=== PATIENT | male | born 1965 | race Caucasian/White ===

== ENCOUNTER → 2018-04-27 09:58 | Outpatient (CLI) | payer OTHER, MEDICAID, SELFPAY | PROVIDERS: PCP Family Medicine; Visit Provider Family Medicine | DX: Z53.9 Procedure and treatment not carried out, unspecified reason (principal) ==

== ENCOUNTER → 2018-04-29 12:43 | Outpatient (CLI) | payer OTHER, MEDICAID, SELFPAY ==
[2018-04-29 13:54] LABS: BUN Creatinine Ratio 18.8 (6-22); Blood Urea Nitrogen 15 mg/dL (9-20); Calcium 9.4 mg/dL (8.4-10.2); Carbon Dioxide 27 mmol/L (22-32); Chloride 103 mmol/L (98-107); Estimated Glomerular Filt Rate > 60.0 mL/min (>60); Glucose 114 mg/dL (70-100); HEMOLYSIS < 15 (0-50); Potassium 3.8 mmol/L (3.4-5.1); Sodium 143 mmol/L (137-145)
[2018-04-29 18:29] LABS: Creatinine Urine Random 106.8 mg/dL
[2018-04-29 18:32] LABS: Microalbumi Creatinin Ratio Ur 9.3 ug/mg CR (<30)
[2018-05-03 05:11] LABS: Aldosterone/Renin Activity Rat 21.2 Ratio (0.9-28.9); Plama Renin, LC/MS/MS 0.66 ng/mL/h (0.25-5.82)
[2018-05-08 09:34] LABS: Total Volume 3400 mL; Urine, Metanephrine 185 mcg/24 h (90-315); Urine, Normetanephrine 654 mcg/24 h (122-676)
[2018-05-08 16:31] LABS: Creatinine, 24 Urine 1.33 g/24 h (0.50-2.15); Total Catecholamines 51 mcg/24 h (26-121); Total Volume: 3400 mL
== END ==
PROVIDERS: Family Provider Family Medicine; PCP Family Medicine; Visit Provider Family Medicine
DX: I10 Essential (primary) hypertension (principal)
CPT/HCPCS: 36415; 80048; 82043; 82088; 82384; 82570; 83835; 84244

== ENCOUNTER → 2018-05-06 08:43 | Outpatient (CLI) | payer OTHER, MEDICAID, SELFPAY ==
--- NOTE | 2018-05-06 08:43 | DI.US.S_ITS ---
PROCEDURE: US RENAL COMPLETE INDICATIONS: REFRACTORY HYPERTENSION TECHNIQUE: Real-time scanning was performed of the kidneys and bladder, with image documentation. COMPARISON: None. FINDINGS: Kidneys: Kidneys are normal in size. Right kidney measures 11.9 cm long; left kidney measures 11.4 cm long. Right renal cortical thickness is 2.1 cm; left renal cortical thickness is 1.8 cm. Renal cortical echotexture is normal. No hydronephrosis or nephrolithiasis. No suspicious solid mass lesions. Bladder: Urinary bladder decompressed and suboptimally visualized. Miscellaneous: No free pelvic fluid. IMPRESSION: Normal kidneys. Dictated by: Azar Sharma [facility] Interpreted: Negro Peñaloza MD on 05/06/2018 at 9:21 Approved by: Negro Peñaloza M.D. on 05/06/2018 at 13:57
--- NOTE | 2018-05-06 08:43 | DI.ECHO.S_ITS ---
[facility] +---------+ : : [address] : : : : [id number] : : : : Phone: [phone]---------+ Echocardiogram Report + + :Name: BRANDON ELLISON Study Date: 05/06/2018 Height: 67 in : :[facility] Exam Location: IS Weight: 200 lb : : Gender: Male BSA: 2.0 m2 : :: 1965 Age: 52 yrs BP: 165/95 mmHg: :Ordering Physician: Piyush Casarez Performed By: Keya Page : :Referring: TRAVIS SHERMAN : + + Interpretation Summary There is mild-moderate concentric left ventricular hypertrophy. The ejection fraction is estimated to be 60-65%. Assessment of diastolic parameters indicates a relaxation abnormality of the left ventricle, consistent with normal filling pressures. The left atrium is mildly dilated. The right ventricular systolic pressure is estimated at 30 mmHg assuming a right atrial pressure of 3 mm Hg. The ascending aorta is mildly enlarged. Procedure: A two-dimensional transthoracic echocardiogram with color flow and Doppler was performed. The study quality was technically adequate. There is no prior echocardiogram noted for this patient. The patient was in normal sinus rhythm during the exam. Left Ventricle: There is mild-moderate concentric left ventricular hypertrophy. The left ventricle is normal in size. The ejection fraction is estimated to be 60-65%. Left ventricular wall motion is normal. Assessment of diastolic parameters indicates a relaxation abnormality of the left ventricle, consistent with normal filling pressures. Right Ventricle: The right ventricle is normal in size and function. Atria: The left atrium is mildly dilated. Right atrial size is normal. There is no Doppler evidence for an interatrial shunt. Mitral Valve: The mitral valve is normal in structure and function. There is mild mitral annular calcification. There is no mitral regurgitation noted. Aortic Valve: The aortic valve is trileaflet. The aortic valve opens well. No aortic regurgitation is present. Tricuspid Valve: The tricuspid valve is normal in structure and function. There is trace tricuspid regurgitation. The right ventricular systolic pressure is estimated at 30 mmHg assuming a right atrial pressure of 3 mm Hg. Pulmonic Valve: The pulmonic valve is not well visualized. There is trace pulmonic regurgitation. Great Vessels: The aortic root is normal size. The ascending aorta is mildly enlarged. The aortic arch is normal in size. The pulmonary artery is not well visualized, but is probably normal size. The IVC is of normal diameter and collapses greater than 50% with a sniff. This suggests a low right atrial pressure of 3 mm Hg. Pericardium/ Pleura There is no pericardial effusion. There is no pleural effusion. MMode/2D Measurements & Calculations LVIDd: 5.4 cm LVOT diam: 2.2 cm LVIDs: 3.1 cm Ao root diam: 3.8 cm FS: 42.9 % asc Aorta Diam: 3.9 cm EPSS: 0.57 cm Ao Arch Diam (Prox Trans): 2.6 cm IVSd: 1.5 cm LVPWd: 1.2 cm LV crespo. diameter/BSA (cm/m^2): 2.7 LV sys. diameter/BSA (cm/m^2): 1.5 LA A2 area: 26.6 cm2 RA long axis: 5.3 cm LA A4 area: 21.7 cm2 RA area: 19.9 cm2 LA length (vol): 5.9 cm RA vol: 63.5 ml LA vol: 83.0 ml RA : 31.4 ml/m2 LA vol index: 41.1 ml/m2 IVC diam: 1.7 cm Doppler Measurements & Calculations Ao V2 max: 156.9 cm/sec LVOT Max Adán: 114.2 cm/sec Ao V2 mean: 99.3 cm/sec LV V1 max P.2 mmHg Ao max P.8 mmHg LV V1 VTI: 28.4 cm Ao mean P.5 mmHg FRANCIE(I,D): 3.2 cm2 Ao V2 VTI: 33.6 cm FRANCIE(V,D): 2.8 cm2 sev ratio: 0.85 FRANCIE indexed to BSA (cm^2/m^2): 1.6 MV E max adán: 84.5 cm/sec TR max adán: 259.7 cm/sec MV A max adán: 91.9 cm/sec TR max P.0 mmHg MV E/A: 0.92 PA V2 max: 70.5 cm/sec Med Peak E' Adán: 5.2 cm/sec PA V2 mean: 48.8 cm/sec E/E' med: 16.4 PA mean P.1 mmHg Lat Peak E' Adán: 7.3 cm/sec PA Accel Time: 0.12 sec E/E' lat: 11.5 E/e' average: 14.0 MV dec time: 0.21 sec MV P1/2t: 61.5 msec MV P1/2t max adán: 84.7 cm/sec MVA(P1/2t): 3.6 cm2 Reading Physician:04:31 PM
== END ==
PROVIDERS: Family Provider Family Medicine; PCP Family Medicine; Visit Provider Family Medicine
DX: I10 Essential (primary) hypertension (principal); I77.89 Other specified disorders of arteries and arterioles
CPT/HCPCS: 76770; 93306

== ENCOUNTER → 2018-09-05 10:51 | Outpatient (CLI) | payer OTHER, MEDICAID, SELFPAY ==
--- NOTE | 2018-09-05 10:53 | DI.RAD.S_ITS ---
PROCEDURE: XR CHEST 2V INDICATIONS: SOB, crackles right lung on exam TECHNIQUE: 2 views of the chest were acquired. COMPARISON: Located Within [facility], , CHEST 2 VIEW, 09/04/2017, 15:55. Located Within [facility], , CHEST 1 VIEW, 08/27/2017, 16:07. FINDINGS: Surgical changes and devices: None. Lungs and pleura: No pleural effusions or pneumothorax. Lungs are clear. Mediastinum: Mediastinal contours are normal. Heart size is normal. Bones and chest wall: No suspicious bony abnormalities. Soft tissues appear unremarkable. IMPRESSION: Normal for age, source of current shortness of breath symptoms is not seen. Dictated by: Negro Peñaloza M.D. on 09/05/2018 at 12:36 Approved by: Negro Peñaloza M.D. on 09/05/2018 at 12:36
== END ==
PROVIDERS: Family Provider Family Medicine; PCP Family Medicine; Visit Provider Family Medicine
DX: R06.02 Shortness of breath (principal)
CPT/HCPCS: 71046

== ENCOUNTER → 2018-09-23 10:02 | Outpatient (CLI) | payer OTHER, MEDICAID, SELFPAY ==
--- NOTE | 2018-09-30 15:29 | PM.PFT.1 ---
Pulmonary Function Test Referral & Results Date Patient Seen: 09/23/18 Requesting provider: Lara Dickson Indication: Cough Results: The spirometry demonstrates an FVC of 3.95 L which is 89% of predicted. The FEV1 was measured at 3.0 L which is 80% of predicted. The FEV1/FVC ratio was 76 which is 90% of predicted. Following the administration of bronchodilator there was a 40% improvement in FEF 25-75%. Lung volumes show an SVC of 3.81 L which is 86% of predicted. The diffusing capacity was measured at 22.45 which is 79% of predicted. No hemoglobin value was provided, so no correction for potential anemia could be made, if appropriate. The maximum voluntary ventilation was normal Interpretation: This study demonstrates probably normal spirometry There is a mild reduction in diffusing capacity, unless patient is anemic, suggesting some minimal element of disease at the capillary alveolar level Clinical correlation suggested
== END ==
PROVIDERS: Family Provider Family Medicine; PCP Family Medicine; Visit Provider Family Medicine
DX: R05 Cough (principal)
CPT/HCPCS: 94060; 94726; 94729

== ENCOUNTER → 2018-10-18 09:38 | Outpatient (CLI) | payer OTHER, MEDICAID, SELFPAY ==
[2018-10-18 10:37] LABS: Add Manual Diff / Slide Review NO; Basophils Absolute Auto 100 /uL (0-100); Basophils Percent Auto 0.7 % (0-2); Eosinophils Absolute Auto 200 /uL (0-450); Eosinophils Percent Auto 2.5 % (2-4); Hemoglobin 15.8 g/dL (13.5-17.5); Lymphocytes Absolute Auto 2600 /uL (1100-4500); Lymphocytes Percent Auto 33.1 % (25-40); Mean Corpuscular Hemoglobin 31.3 PG (26-34); Mean Corpuscular Volume 89.4 fL (80-100); Monocytes Absolute Auto 700 /uL (0-900); Monocytes Percent Auto 8.9 % (3-14); Neutrophils Absolute Auto 4400 /uL (1500-7000); Neutrophils Percent Auto 54.8 % (50-75); Platelet Count 267 X10^3/uL (150-400); Red Blood Cell Count 5.03 X10^6/uL (4.5-5.9); Red Cell Distribution Width 14.4 % (11.6-14.8)
[2018-10-18 10:47] LABS: BUN Creatinine Ratio 23.3 (6-22); Blood Urea Nitrogen 21 mg/dL (9-20); Calcium 9.4 mg/dL (8.4-10.2); Carbon Dioxide 25 mmol/L (22-32); Chloride 104 mmol/L (98-107); Cholesterol 218 mg/dL (140-199); Estimated Glomerular Filt Rate > 60.0 mL/min (>60); Glucose 100 mg/dL (70-100); HDL Cholesterol 29 mg/dL (40-60); HEMOLYSIS < 15 (0-50); LDL Cholesterol Calculated 130 mg/dL (<100); Potassium 3.7 mmol/L (3.4-5.1); Sodium 140 mmol/L (137-145); Triglycerides 297 mg/dL (35-150)
== END ==
PROVIDERS: Family Provider Family Medicine; PCP Family Medicine; Visit Provider Internal Medicine Cardiovascular Disease
DX: I10 Essential (primary) hypertension (principal); E78.5 Hyperlipidemia, unspecified; I15.2 Hypertension secondary to endocrine disorders
CPT/HCPCS: 36415; 80048; 80061; 85025

== ENCOUNTER → 2019-02-28 13:50 | Outpatient (CLI) | payer OTHER, MEDICAID, SELFPAY ==
[2019-02-28 15:43] LABS: BUN Creatinine Ratio 21.1 (6-22); Blood Urea Nitrogen 19 mg/dL (9-20); Calcium 9.6 mg/dL (8.4-10.2); Carbon Dioxide 23 mmol/L (22-32); Chloride 105 mmol/L (98-107); Estimated Glomerular Filt Rate > 60.0 mL/min (>60); Glucose 94 mg/dL (70-100); HEMOLYSIS < 15 (0-50); Potassium 4.7 mmol/L (3.4-5.1); Sodium 138 mmol/L (137-145)
== END ==
PROVIDERS: Family Provider Family Medicine; PCP Family Medicine; Visit Provider Internal Medicine Cardiovascular Disease
DX: I10 Essential (primary) hypertension (principal)
CPT/HCPCS: 36415; 80048

== ENCOUNTER → 2019-04-07 10:49 | Outpatient (CLI) | payer OTHER, MEDICAID, SELFPAY ==
[2019-03-29 10:33] VITALS: PULSE 47
[2019-04-07 11:47] LABS: Collection Time Urine 24 Hours; Creatinine 24 Hour Urine 1384 mg/day (1000-2000); Creatinine Urine Random 79.1 mg/dL; Total Volume Urine 1750 mL
[2019-04-14 18:00] LABS: Total Volume 1750 mL; Urine, Metanephrine 173 mcg/24 h (90-315); Urine, Normetanephrine 544 mcg/24 h (122-676)
== END ==
PROVIDERS: Family Provider Family Medicine; PCP Family Medicine; Visit Provider Internal Medicine Endocrinology, Diabetes & Metabolism
DX: I15.9 Secondary hypertension, unspecified (principal)
CPT/HCPCS: 82570; 83835

== ENCOUNTER → 2019-04-13 12:14 | Outpatient (CLI) | payer OTHER, MEDICAID, SELFPAY ==
[2019-03-29 10:33] VITALS: PULSE 47
[2019-04-13 13:15] LABS: BUN Creatinine Ratio 17.8 (6-22); Blood Urea Nitrogen 16 mg/dL (9-20); Calcium 9.8 mg/dL (8.4-10.2); Carbon Dioxide 26 mmol/L (22-32); Chloride 103 mmol/L (98-107); Estimated Glomerular Filt Rate > 60.0 mL/min (>60); Glucose 93 mg/dL (70-100); HEMOLYSIS < 15 (0-50); Potassium 4.6 mmol/L (3.4-5.1); Sodium 139 mmol/L (137-145)
== END ==
PROVIDERS: PCP Family Medicine; Visit Provider Internal Medicine Cardiovascular Disease
DX: I10 Essential (primary) hypertension (principal)
CPT/HCPCS: 36415; 80048

== ENCOUNTER → 2019-06-02 09:35 | Outpatient (CLI) | payer OTHER, MEDICAID, SELFPAY ==
[2019-03-29 10:33] VITALS: PULSE 47
--- NOTE | 2019-06-02 15:09 | PM.TREADMILL ---
Cardiac Stress Test Report Referral & Results Date Patient Seen: 06/02/19 Requesting provider: Ravindra Barreto Indication: Hypertension Rest ECG: Unremarkable Procedure Note: After both written and verbal informed consent the patient had an IV started by the diagnostic imaging RN and then was hooked up to the treadmill monitoring system. The patient was placed on the treadmill at 1 mile an hour with no elevation and was then injected with the [place] scan material. The Cardiolite was then immediately administered. The patient spent an additional 2-3 minutes on the treadmill before being returned to the [facility] in the supine position. The patient had a normal response to all infused materials. Impression: Normal response as above. Please see perfusion imaging for results regarding possible ischemia Please note: Actual ECG tracings can be found in the PACS system.
--- NOTE | 2019-06-03 07:41 | DI.NM.S_ITS ---
DATE OF SERVICE: 06/02/2019 PROCEDURE PERFORMED: Pharmacologic vasodilator stress and rest myocardial perfusion imaging with gating to assess ejection fraction and regional wall motion, performed as a 1-day study. ORDERING PHYSICIAN: Ravindra Barreto MD INDICATIONS: The patient is a 53-year-old male with severe hypertension and tobacco addiction with exertional dyspnea. CARDIAC STRESS: Per protocol, 0.4 mg of regadenoson was infused, augmented by walking on a treadmill. With this, he had no symptoms and had a normal hemodynamic response. His resting ECG is normal and there are no ischemic changes with stress. There were no arrhythmias. Per protocol, 26.2 mCi of technetium 99 Myoview was injected and he was imaged 20 minutes later using a gated SPECT acquisition protocol. Earlier, he had been injected with 12.6 mCi of technetium 99 Myoview at rest and was imaged 30 minutes following that injection, again using a gated SPECT protocol. FINDINGS: 1. Raw data: There is fairly good myocardial tracer uptake. The lung/heart ratio is normal at 0.30 with a normal TID ratio of 0.94. 2. Quantitative gated SPECT: Post-stress ejection fraction is estimated at 76% without any focal wall motion abnormality. Resting ejection fraction is 74% with a resting end-diastolic volume of 143 mL. 3. Myocardial perfusion imaging: Post-stress supine images show a fairly normal perfusion pattern with a mild defect in the inferior wall that resolves on prone imaging, consistent with diaphragmatic attenuation. The resting images show an identical perfusion pattern to the post-stress supine images. CONCLUSION: 1. Normal myocardial perfusion study. 2. Mild fixed inferior wall defect that resolves on prone imaging, consistent with diaphragmatic attenuation. There is no compelling evidence for ischemia or previous myocardial infarction. 3. Normal left ventricular systolic function without any regional wall motion abnormality. 4. No angina or ECG evidence of ischemia with pharmacologic vasodilator stress. Vaughn Sánchez - RS/fn/ts doc#: [id number]/job#: [id number] dd: 06/02/2019 16:19:00 dt: 06/03/2019 07:24:00 DICTATING MD/COPIES TO: Margarito Odom MD; Ravindra Barreto MD; TRAVIS SHERMAN MD COPIES MNE: MIGUEL ÁNGEL MASTERS
== END ==
PROVIDERS: Family Provider Family Medicine; PCP Family Medicine; Visit Provider Internal Medicine Cardiovascular Disease
DX: R06.09 Other forms of dyspnea (principal); R07.9 Chest pain, unspecified; I15.2 Hypertension secondary to endocrine disorders; F17.200 Nicotine dependence, unspecified, uncomplicated
CPT/HCPCS: 78452; 93016; 93017; 93018; A9502; J2785

== ENCOUNTER 2019-06-27 10:30 | Outpatient (RCR) | payer OTHER, MEDICAID, SELFPAY ==
[2019-03-27 11:18] VITALS: BP 170/106; PULSE 51
--- NOTE | 2019-03-27 16:44 | PT.OIE ---
Current Diagnoses Bilateral primary osteoarthritis of knee (03/27/19) Pain in right knee (03/27/19) Pain in left knee (03/27/19) Other reduced mobility (03/27/19) Past Medical History (Last Updated 01/21/18 @ 11:53 by Naheed Ferris) Bilateral knee pain (Chronic 2002) COPD (chronic obstructive pulmonary disease) (Chronic 2014) Depression (Chronic) Hypertension (Chronic) Gastric ulcer (Resolved 2002) Rheumatic fever (Resolved 1983) Right eye injury (Resolved 1997) Past Surgical History (Last Updated 03/23/18 @ 10:50 by Naheed Ferris) Anesthesia (Resolved) Status post knee surgery (Resolved 2003) Provider Visit Care Team Role Provider Type Lara Dickson MD Primary Care Provider Physician Specialty: Family Practice Address: [address] [place] [address], [id number] Email: [email or web address] Jaylen Nunes PA-C Attending Provider Non-Staff Specialty: Medical Address: [address] [place] [address], [id number] Email: Physical Therapy Initial Evaluation PT-OP-A Visit Information Start: 03/24/19 18:29 Freq: Status: Active Protocol: Document 03/27/19 11:18 LRN (Rec: 03/27/19 12:43 LRN [id number]) Out-Patient Physical Therapy Visit Information Visit Information Visit Type Initial Evaluation Visit Start Time 11:18 Visit Stop Time 12:10 Total Visit Minutes 52 Visit Number 1 Number of [employer] Visits 0 Evaluation Information Evaluation Date 03/27/19 Precautions Precautions Dizziness Passing out feeling when coughing Uncontrolled HBP. PT-OP-B Current Condition Start: 03/24/19 18:29 Freq: Status: Active Protocol: Document 03/27/19 11:18 LRN (Rec: 03/27/19 12:43 LRN [id number]) Current Condition History of Current Condition Onset Date R knee 2003, L knee 2001 Current Complaints Bilateral sharp pains in the knee. L knee has given out going down stairs History of Current Condition Has always walked with a limp and it has been getting bad lately. 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 Must have PT before receiving an MRI. Last year was not able to receive PT because the blood pressure was too high. Blood pressure is now below 160/100, but the heart rate drops sometimes too low (35 bpm). Nest appt with roof technician is 04/14/19, and has an appt with a hormone/ gland specialist on 04/03/19. L knee is worse than the right . L knee pain can be sharp from the infrapatellar to the suprapatellar region. Feels the right side is bad because it compensates for the left. He has been off his feet so today his knees are not bad. Pain is with movement and with twisting. 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 Prior Treatments and Tests R knee arthroscopic surgery to clean it. Treatment Goals Patient/Caregiver Goals Pt goal is to not hurt anymore . His goal is to complete 4 weeks of therapy and get an MRI Prior Functional Status Baseline Function- ADL's Independent Baseline Function- Mobility Independent Baseline Function- Gait 2009 used cane because of L knee pain. Baseline Function- Work/School Worked 60-80 hours a week. Baseline Function- Other Limited with working tolerance . Currently not working. Walked up to 15-20 mile a day 4 yrs ago. Current Functional Impairments (Reported) Functional Limitations- Mobility/Gait Limited to 1-2 miles Functional Limitations- Work/School Currently limiting work 2 to 20 hrs/week due to knee pain. Functional Limitations- Other Stair ambulation sometimes one stepping going up, always one stepping descending (leading with left). Personal Factors Other Personal Factors That May Effect Dizziness Therapy/Recovery Feels like passing out when coughing Depression PT-OP-C Subjective Start: 03/24/19 18:29 Freq: Status: Active Protocol: Document 03/27/19 11:18 LRN (Rec: 03/27/19 12:43 LRN [id number]) Patient Questionnaires ABC- Activity Specific Balance Confidence Scale ABC Score 67 ABC Functional Impairment 20 to <40% Impaired (Score 61- 80) OP-PT Pain Assessment Location R knee Intensity 7 Scale Used Numeric (1 - 10) Description Aching Sharp Frequency Constant Pain Aggravating Factors Activity Exercise Standing Sitting Walking Stair Climbing Bending Lifting Pain Alleviating Factors Cold Medication Other Pain Alleviating Factors Tyleonol L knee Intensity 9 Scale Used Numeric (1 - 10) Description Aching Sharp Shooting Frequency Constant Pain Aggravating Factors Activity Exercise Standing Walking Stair Climbing Bending Lifting Pain Alleviating Factors Cold Medication Reduced Environmental Stimuli Other Pain Alleviating Factors Tylenol PT-OP-H Neuro Start: 03/24/19 18:29 Freq: Status: Active Protocol: Document 03/27/19 11:18 LRN (Rec: 03/28/19 16:23 LRN [id number]) Deep Tendon Reflex & Clonus Assessment Deep Tendon Reflex Right Achilles Deep Tendon Reflex 1+ Diminished Left Achilles Deep Tendon Reflex 0 Absent Right Patellar Deep Tendon Reflex 0 Absent Left Patellar Deep Tendon Reflex 2+ Normal Vital Signs Pulse R index finger Pulse at Rest (bpm) 51 Pulse Assessment Method Pulse Ox/Monitor Blood Pressure Sitting Blood Pressure (90/60-120/80 mmHg) 170/106 H Blood Pressure Source Manual Cuff Left Upper Extremity PT-OP-J Posture/Palpation/Skin Start: 03/24/19 18:29 Freq: Status: Active Protocol: Document 03/27/19 11:18 LRN (Rec: 03/28/19 16:23 LRN [id number]) Posture Evaluation Comments Posture Comments In standing: Pt stands more on his R LE ~60%. He has mild varus on the right, increased lumbar lordosis and a forward head. Palpation Assessment Location L & R knee Palpation Location Medial joint line Palpation Findings Tenderness L knee Palpation Location L patella superiorly, inferiorly and inferolateral Palpation Findings Tenderness PT-OP-K Range of Motion Start: 03/24/19 18:29 Freq: Status: Active Protocol: Document 03/27/19 11:18 LRN (Rec: 03/28/19 16:23 LRN [id number]) Hip Goniometric Range of Motion Hip Right Passive Straight Leg Raise 80 Left Passive Straight Leg Raise 70 Knee Goniometric Range of Motion Knee Right Patient Position Supine Flexion Active (degrees) 140 Extension Active (degrees) 5 Left Patient Position Supine Flexion Active (degrees) 140 Extension Active (degrees) 12 Knee ROM Limitations Knee ROM Limitations Pain Comments Extension Active measurement: is lacking extension in degrees PT-OP-L Special Tests Start: 03/24/19 18:29 Freq: Status: Active Protocol: Document 03/27/19 11:18 LRN (Rec: 03/28/19 16:23 LRN [id number]) Special Tests Knee Special Tests Valgus- 25 Degrees Test Results + left Comments Left: Medial knee Pain with testing. Right: Lateral knee Pain with testing. Anterior Draw Test Results Bilateral: Increased forward translation with end stop PT-OP-M Strength Start: 03/24/19 18:29 Freq: Status: Active Protocol: Document 03/27/19 11:18 LRN (Rec: 03/28/19 16:23 LRN [id number]) Knee Strength Knee Manual Muscle Testing Right Reason Not Measured WFL Left Reason Not Measured WFL PT-OP-Q Treatments Start: 03/24/19 18:29 Freq: Status: Active Protocol: Document 03/27/19 11:18 LRN (Rec: 03/28/19 16:23 LRN [id number]) Manual Therapy Treatment Taping Knees Body Location Medial Harmon Patella Treatment Focus Alignment correction Type of Tape Kinesio Tape Skin Inspection Pt agreeable to taping on legs without shaving. Comments Pt instructed to remove before next appointment and to remove with signs of allergic reaction, with discussion of possible symptoms. Self-Care/Home Management Treatment Education Other Education Safe and proper removal of K- tape. Discussed safe Blood pressures for exercise and physical therapy. Activities Self-Care/Home Management Activities Pt to remove K-tape before next appointment or within 5 days. PT-OP-T Assessment and Plan Start: 03/24/19 18:29 Freq: Status: Active Protocol: Document 03/27/19 11:18 LRN (Rec: 03/27/19 12:43 LRN [id number]) Physical Therapy Assessment Rehab Potential Rehabilitation Potential Fair Evaluation Complexity Number of Personal Factors/Comorbidities 3 or More Number of Body Systems Impaired 4 or More Impairments Impairments Activity Tolerance Gait Pain Posture ROM Strength Other Impairments Uncontrolled HBP Other Concerns Age Related Concerns Effect on work and social life Barriers to Rehabilitation Co-morbidities Goals Two Impairment Bilateral knee pain (L rated 9 /10, R rated 7/10) Mcfp Goal (LTG) Decrease knee pain with pt able to tolerate increased tolerance to walking (>1-2 miles) and improved tolerance to working. One Impairment Lacks appropriate HEP Electrician Telephone Goal (LTG) Pt will be independent with a self care HEP. LTG Duration 04/28/19 Assessment Summary Assessment Pt presents today with blood pressure in sittin/106, he is to keep his systolic blood pressure 140 or below. The pt will be seeing his primary care physician prior to continuation of his physical therapy rehabilitation. Today, the pt presents with L knee instability with possible ligamentous laxity of his MCL and ACL, and R knee laxity of the MCL. Of the L knee he is limited in weight bearing due to sharp knee pain and appears to get slight relief of pain with patella gliding medially with extension. His R knee appears to be increasing in pain due to excessive weight bearing from compensating for his L knee pain. The pt may benefit from use of a cane to protect his R knee and decrease weight bearing on the left until he is able to strengthen to improve L knee stability. The pt will benefit from skilled physical therapy for LE strengthening, gait training, modalities to decrease pain, ROM ex's and placement on a HEP. The patient might do better in an aquatic therapy program. This will be discussed with the patient at his next appointment. Physical Therapy Plan Frequency and Duration Frequency of Treatment 2x/Week Plan of Care Start Date 03/27/19 Plan of Care End Date 04/28/19 Therapeutic Interventions Therapeutic Interventions Aquatic Therapy Gait Training Home Exercise Program Manual Therapy Neuromuscular Re-education Patient/Caregiver Education Self-Care/Home Management Soft Tissue Mobilization Taping Therapeutic Exercises Modalities Cold Pack/Ice Massage Electric Stimulation Hot Packs Ultrasound Next Visit Focus/Plan Next Note Type Treatment Note Next Visit Plan ASSESS BP & HR prior to exercise. Discuss possible aquatic therapy for ROM and strengthening. Check pt's response to K-tape, gait training with use of cane, start strengthening ex's and ROM to improve L knee ext; end with modalities (US, ice/E- stim, laser).
--- NOTE | 2019-03-27 16:45 | PT.OPPOC ---
Current Diagnoses Bilateral primary osteoarthritis of knee (03/27/19) Pain in right knee (03/27/19) Pain in left knee (03/27/19) Other reduced mobility (03/27/19) Provider Visit Care Team Role Provider Type Lara Dickson MD Primary Care Provider Physician Specialty: Family Practice Address: [address] [place] [address], [id number] Email: [email or web address] Jaylen Nunes PA-C Attending Provider Non-Staff Specialty: Medical Address: [address] [place] [address], [id number] Email: Plan Of Care PT-OP-T Assessment and Plan Start: 03/24/19 18:29 Freq: Status: Active Protocol: Document 03/27/19 11:18 LRN (Rec: 03/27/19 12:43 LRN [id number]) Physical Therapy Assessment Rehab Potential Rehabilitation Potential Fair Evaluation Complexity Number of Personal Factors/Comorbidities 3 or More Number of Body Systems Impaired 4 or More Impairments Impairments Activity Tolerance Gait Pain Posture ROM Strength Other Impairments Uncontrolled HBP Other Concerns Age Related Concerns Effect on work and social life Barriers to Rehabilitation Co-morbidities Goals Two Impairment Bilateral knee pain (L rated 9 /10, R rated 7/10) Assignment Clerk Goal (LTG) Decrease knee pain with pt able to tolerate increased tolerance to walking (>1-2 miles) and improved tolerance to working. One Impairment Lacks appropriate HEP Assignment Clerk Goal (LTG) Pt will be independent with a self care HEP. LTG Duration 04/28/19 Assessment Summary Assessment Pt presents today with blood pressure in sittin/106, he is to keep his systolic blood pressure 140 or below. The pt will be seeing his primary care physician prior to continuation of his physical therapy rehabilitation. Today, the pt presents with L knee instability with possible ligamentous laxity of his MCL and ACL, and R knee laxity of the MCL. Of the L knee he is limited in weight bearing due to sharp knee pain and appears to get slight relief of pain with patella gliding medially with extension. His R knee appears to be increasing in pain due to excessive weight bearing from compensating for his L knee pain. The pt may benefit from use of a cane to protect his R knee and decrease weight bearing on the left until he is able to strengthen to improve L knee stability. The pt will benefit from skilled physical therapy for LE strengthening, gait training, modalities to decrease pain, ROM ex's and placement on a HEP. The patient might do better in an aquatic therapy program. This will be discussed with the patient at his next appointment. Physical Therapy Plan Frequency and Duration Frequency of Treatment 2x/Week Plan of Care Start Date 03/27/19 Plan of Care End Date 04/28/19 Therapeutic Interventions Therapeutic Interventions Aquatic Therapy Gait Training Home Exercise Program Manual Therapy Neuromuscular Re-education Patient/Caregiver Education Self-Care/Home Management Soft Tissue Mobilization Taping Therapeutic Exercises Modalities Cold Pack/Ice Massage Electric Stimulation Hot Packs Ultrasound Next Visit Focus/Plan Next Note Type Treatment Note Next Visit Plan ASSESS BP & HR prior to exercise. Discuss possible aquatic therapy for ROM and strengthening. Check pt's response to K-tape, gait training with use of cane, start strengthening ex's and ROM to improve L knee ext; end with modalities (US, ice/E- stim, laser). Plan of Care Dates Plan of Care Start Date 03/27/19 Plan of Care End Date 04/28/19 Please Sign and Return: I have reviewed this Plan of Care and certify that the skilled therapy services above are required to meet the patient?s needs. Physician Signature Date Printed Name and Credentials Clinical Instructor Signature Printed Name and Credentials
[2019-03-29 10:33] VITALS: BP 120/84; PULSE 47
--- NOTE | 2019-03-29 11:41 | PT.OTN ---
Current Diagnoses Bilateral primary osteoarthritis of knee (03/29/19) Pain in right knee (03/29/19) Pain in left knee (03/29/19) Other reduced mobility (03/29/19) Physical Therapy Treatment Note PT-OP-A Visit Information Start: 03/24/19 18:29 Freq: Status: Active Protocol: Document 03/29/19 10:33 LRN (Rec: 03/29/19 11:22 LRN [id number]) Out-Patient Physical Therapy Visit Information Visit Information Visit Type Treatment Note Visit Start Time 10:33 Visit Stop Time 11:21 Total Visit Minutes 48 Visit Number 2 Number of SPRING FITTER HELPER Visits 0 Evaluation Information Evaluation Date 03/27/19 Precautions Precautions Uncontrolled HBP Dizziness Passing out feeling when coughing PT-OP-B Current Condition Start: 03/24/19 18:29 Freq: Status: Active Protocol: Document 03/27/19 11:18 LRN (Rec: 03/27/19 12:43 LRN [id number]) Current Condition History of Current Condition Onset Date R knee 2003, L knee 2001 Current Complaints Bilateral sharp pains in the knee. L knee has given out going down stairs History of Current Condition Has always walked with a limp and it has been getting bad lately. 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 Must have PT before receiving an MRI. Last year was not able to receive PT because the blood pressure was too high. Blood pressure is now below 160/100, but the heart rate drops sometimes too low (35 bpm). Nest appt with colon therapist is 04/14/19, and has an appt with a hormone/ gland specialist on 04/03/19. L knee is worse than the right . L knee pain can be sharp from the infrapatellar to the suprapatellar region. Feels the right side is bad because it compensates for the left. He has been off his feet so today his knees are not bad. Pain is with movement and with twisting. 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 Prior Treatments and Tests R knee arthroscopic surgery to clean it. Treatment Goals Patient/Caregiver Goals Pt goal is to not hurt anymore . His goal is to complete 4 weeks of therapy and get an MRI Prior Functional Status Baseline Function- ADL's Independent Baseline Function- Mobility Independent Baseline Function- Gait 2009 used cane because of L knee pain. Baseline Function- Work/School Worked 60-80 hours a week. Baseline Function- Other Limited with working tolerance . Currently not working. Walked up to 15-20 mile a day 4 yrs ago. Current Functional Impairments (Reported) Functional Limitations- Mobility/Gait Limited to 1-2 miles Functional Limitations- Work/School Currently limiting work 2 to 20 hrs/week due to knee pain. Functional Limitations- Other Stair ambulation sometimes one stepping going up, always one stepping descending (leading with left). Personal Factors Other Personal Factors That May Effect Dizziness Therapy/Recovery Feels like passing out when coughing Depression PT-OP-C Subjective Start: 03/24/19 18:29 Freq: Status: Active Protocol: Document 03/29/19 10:33 LRN (Rec: 03/29/19 11:22 LRN [id number]) OP-PT Subjective Patient Comments Patient Comments Went to see his general practitioner after last appt and is waiting to set up an appt, blood pressure was found to be high. States he is to work within blood pressure limit of 160/100. No change in knee pain with K-tape. Pt to see thyroid specialist ~ 12th of this month. PT-OP-H Neuro Start: 03/24/19 18:29 Freq: Status: Active Protocol: Document 03/29/19 10:33 LRN (Rec: 03/29/19 11:22 LRN [id number]) Vital Signs Pulse R index finger Pulse at Rest (bpm) 47 Pulse Assessment Method Pulse Ox/Monitor Blood Pressure Sitting Blood Pressure (90/60-120/80 mmHg) 120/84 H Blood Pressure Source Manual Cuff Comments Vital Signs Comments S/P therapy, Supine: HR 45, BP 140/82 PT-OP-J Posture/Palpation/Skin Start: 03/24/19 18:29 Freq: Status: Active Protocol: Document 03/27/19 11:18 LRN (Rec: 03/28/19 16:23 LRN [id number]) Posture Evaluation Comments Posture Comments In standing: Pt stands more on his R LE ~60%. He has mild varus on the right, increased lumbar lordosis and a forward head. Palpation Assessment Location L & R knee Palpation Location Medial joint line Palpation Findings Tenderness L knee Palpation Location L patella superiorly, inferiorly and inferolateral Palpation Findings Tenderness PT-OP-K Range of Motion Start: 03/24/19 18:29 Freq: Status: Active Protocol: Document 03/27/19 11:18 LRN (Rec: 03/28/19 16:23 LRN [id number]) Hip Goniometric Range of Motion Hip Right Passive Straight Leg Raise 80 Left Passive Straight Leg Raise 70 Knee Goniometric Range of Motion Knee Right Patient Position Supine Flexion Active (degrees) 140 Extension Active (degrees) 5 Left Patient Position Supine Flexion Active (degrees) 140 Extension Active (degrees) 12 Knee ROM Limitations Knee ROM Limitations Pain Comments Extension Active measurement: is lacking extension in degrees PT-OP-L Special Tests Start: 03/24/19 18:29 Freq: Status: Active Protocol: Document 03/27/19 11:18 LRN (Rec: 03/28/19 16:23 LRN [id number]) Special Tests Knee Special Tests Valgus- 25 Degrees Test Results + left Comments Left: Medial knee Pain with testing. Right: Lateral knee Pain with testing. Anterior Draw Test Results Bilateral: Increased forward translation with end stop PT-OP-M Strength Start: 03/24/19 18:29 Freq: Status: Active Protocol: Document 03/27/19 11:18 LRN (Rec: 03/28/19 16:23 LRN [id number]) Knee Strength Knee Manual Muscle Testing Right Reason Not Measured WFL Left Reason Not Measured WFL PT-OP-Q Treatments Start: 03/24/19 18:29 Freq: Status: Active Protocol: Document 03/29/19 10:33 LRN (Rec: 03/29/19 11:22 LRN [id number]) Therapeutic Exercises Supine Exercises TA Supine Exercise Name TA Reps/Minutes 5' Comments Training needed, pt not yet able to perform correctly SLR 1 O'Clock Supine Exercise Name SLR 1 O'Clock Side left Resistance 1# Reps/Minutes 10 x 3 SLR Supine Exercise Name Foot @ 11 Resistance 0, 1#, 2# Reps/Minutes 10 x each slowly SLR 12 O'clock Supine Exercise Name SLR foot 12 O'Clock Side left Resistance 9# Reps/Minutes 10x slowly Chest breathing w/TA tightening Supine Exercise Name Chest breathing w/TA tightening Reps/Minutes 10' Comments Manual cuing needed PT-OP-R Modalities Start: 03/24/19 18:29 Freq: Status: Active Protocol: Document 03/29/19 10:33 LRN (Rec: 03/29/19 11:22 LRN [id number]) Ultrasound Therapy Treatment L knee Treatment Duration (minutes) 8 Patient Position Supine Coupling Medium Ultrasound Gel Mode Setting Pulsed Duty Cycle 50% Intensity Setting (w/cm2) 1.0 Comments Infrapatellar medially & laterally PT-OP-T Assessment and Plan Start: 03/24/19 18:29 Freq: Status: Active Protocol: Document 03/29/19 10:33 LRN (Rec: 03/29/19 11:22 LRN [id number]) Physical Therapy Assessment Assessment Summary Assessment Pt blood pressure within acceptable range for therapy of high limit: 160/100. BP @ start in sitting 120/84, after therapy in supine BP 140/82. No improvement with use of K -tape. Pt is not able to properly tighten his TA and it does not properly tighten reflexively with coughing. He has no upper chest excursion with breathing. Pt agreeable to trying aquatic therapy for ROM and strengthening. Physical Therapy Plan Frequency and Duration Frequency of Treatment 2x/Week Plan of Care Start Date 03/27/19 Plan of Care End Date 04/28/19 Next Visit Focus/Plan Next Note Type Treatment Note Next Visit Plan ASSESS BP & HR prior to exercise. Check response to US and check breathing and ability to stabilize the core with TA contraction. Try getting pt in to aquatic therapy (place on wait list). Start Gait training with use of cane, progress strengthening ex's, and ROM to improve L knee ext; on land end with modalities (US, ice/E -stim, laser).
--- NOTE | 2019-04-04 11:07 | PT.OTN ---
Current Diagnoses Bilateral primary osteoarthritis of knee (04/04/19) Pain in right knee (04/04/19) Pain in left knee (04/04/19) Other reduced mobility (04/04/19) Physical Therapy Treatment Note PT-OP-A Visit Information Start: 03/24/19 18:29 Freq: Status: Active Protocol: Document 04/04/19 10:00 GGD (Rec: 04/04/19 11:07 GGD [id number]) Out-Patient Physical Therapy Visit Information Visit Information Visit Type Treatment Note Visit Start Time 09:45 Visit Stop Time 10:23 Total Visit Minutes 38 Visit Number 3 Number of PRODUCTION ENGINE REPAIRER Visits 1 Evaluation Information Evaluation Date 03/27/19 PT-OP-B Current Condition Start: 03/24/19 18:29 Freq: Status: Active Protocol: Document 03/27/19 11:18 LRN (Rec: 03/27/19 12:43 LRN [id number]) Current Condition History of Current Condition Onset Date R knee 2003, L knee 2001 Current Complaints Bilateral sharp pains in the knee. L knee has given out going down stairs History of Current Condition Has always walked with a limp and it has been getting bad lately. 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 Must have PT before receiving an MRI. Last year was not able to receive PT because the blood pressure was too high. Blood pressure is now below 160/100, but the heart rate drops sometimes too low (35 bpm). Nest appt with grain elevator operator is 04/14/19, and has an appt with a hormone/ gland specialist on 04/03/19. L knee is worse than the right . L knee pain can be sharp from the infrapatellar to the suprapatellar region. Feels the right side is bad because it compensates for the left. He has been off his feet so today his knees are not bad. Pain is with movement and with twisting. 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 Prior Treatments and Tests R knee arthroscopic surgery to clean it. Treatment Goals Patient/Caregiver Goals Pt goal is to not hurt anymore . His goal is to complete 4 weeks of therapy and get an MRI Prior Functional Status Baseline Function- ADL's Independent Baseline Function- Mobility Independent Baseline Function- Gait 2009 used cane because of L knee pain. Baseline Function- Work/School Worked 60-80 hours a week. Baseline Function- Other Limited with working tolerance . Currently not working. Walked up to 15-20 mile a day 4 yrs ago. Current Functional Impairments (Reported) Functional Limitations- Mobility/Gait Limited to 1-2 miles Functional Limitations- Work/School Currently limiting work 2 to 20 hrs/week due to knee pain. Functional Limitations- Other Stair ambulation sometimes one stepping going up, always one stepping descending (leading with left). Personal Factors Other Personal Factors That May Effect Dizziness Therapy/Recovery Feels like passing out when coughing Depression PT-OP-C Subjective Start: 03/24/19 18:29 Freq: Status: Active Protocol: Document 04/04/19 10:00 GGD (Rec: 04/04/19 11:07 GGD [id number]) OP-PT Subjective Patient Comments Patient Comments Pt states that he had some muscle soreness after doing exerices. PT-OP-H Neuro Start: 03/24/19 18:29 Freq: Status: Active Protocol: Document 03/29/19 10:33 LRN (Rec: 03/29/19 11:22 LRN [id number]) Vital Signs Pulse R index finger Pulse at Rest (bpm) 47 Pulse Assessment Method Pulse Ox/Monitor Blood Pressure Sitting Blood Pressure (90/60-120/80 mmHg) 120/84 H Blood Pressure Source Manual Cuff Comments Vital Signs Comments S/P therapy, Supine: HR 45, BP 140/82 PT-OP-J Posture/Palpation/Skin Start: 03/24/19 18:29 Freq: Status: Active Protocol: Document 03/27/19 11:18 LRN (Rec: 03/28/19 16:23 LRN [id number]) Posture Evaluation Comments Posture Comments In standing: Pt stands more on his R LE ~60%. He has mild varus on the right, increased lumbar lordosis and a forward head. Palpation Assessment Location L & R knee Palpation Location Medial joint line Palpation Findings Tenderness L knee Palpation Location L patella superiorly, inferiorly and inferolateral Palpation Findings Tenderness PT-OP-K Range of Motion Start: 03/24/19 18:29 Freq: Status: Active Protocol: Document 03/27/19 11:18 LRN (Rec: 03/28/19 16:23 LRN [id number]) Hip Goniometric Range of Motion Hip Right Passive Straight Leg Raise 80 Left Passive Straight Leg Raise 70 Knee Goniometric Range of Motion Knee Right Patient Position Supine Flexion Active (degrees) 140 Extension Active (degrees) 5 Left Patient Position Supine Flexion Active (degrees) 140 Extension Active (degrees) 12 Knee ROM Limitations Knee ROM Limitations Pain Comments Extension Active measurement: is lacking extension in degrees PT-OP-L Special Tests Start: 03/24/19 18:29 Freq: Status: Active Protocol: Document 03/27/19 11:18 LRN (Rec: 03/28/19 16:23 LRN [id number]) Special Tests Knee Special Tests Valgus- 25 Degrees Test Results + left Comments Left: Medial knee Pain with testing. Right: Lateral knee Pain with testing. Anterior Draw Test Results Bilateral: Increased forward translation with end stop PT-OP-M Strength Start: 03/24/19 18:29 Freq: Status: Active Protocol: Document 03/27/19 11:18 LRN (Rec: 03/28/19 16:23 LRN [id number]) Knee Strength Knee Manual Muscle Testing Right Reason Not Measured WFL Left Reason Not Measured WFL PT-OP-Q Treatments Start: 03/24/19 18:29 Freq: Status: Active Protocol: Document 04/04/19 10:00 GGD (Rec: 04/04/19 11:07 GGD [email or web address]) Therapeutic Exercises Supine Exercises 1 Supine Exercise Name qaud set with progressing knee extension Reps/Minutes 3' TA Supine Exercise Name TA Reps/Minutes 3' Comments cueing needed, pt not yet able to perform correctly SLR 1 O'Clock Supine Exercise Name SLR 1 O'Clock Side left Resistance 1# Reps/Minutes 10 x 3 SLR Supine Exercise Name Foot @ 11 Resistance 0, 1#, 2# Reps/Minutes 10 x each slowly SLR 12 O'clock Supine Exercise Name SLR foot 12 O'Clock Side left Resistance 9# Reps/Minutes 10x slowly Chest breathing w/TA tightening Supine Exercise Name Chest breathing w/TA tightening Reps/Minutes 5' Comments cuing needed Standing Exercises 2 Standing Exercise Name TKE Side bilateral Resistance Level 1 band Reps/Minutes 10x each 1 Standing Exercise Name hamstring stretch Reps/Minutes 2' Gait Training Gait Activity 1 Description gait training with and without SPC Device Used SPC Level of Assistance cueing Surface level Distance/Duration 200 PT-OP-R Modalities Start: 03/24/19 18:29 Freq: Status: Active Protocol: Document 04/04/19 10:00 GGD (Rec: 04/04/19 11:07 GGD [id number]) Ultrasound Therapy Treatment L knee Treatment Duration (minutes) 8 Patient Position Supine Coupling Medium Ultrasound Gel Mode Setting Pulsed Duty Cycle 50% Intensity Setting (w/cm2) 1.0 Comments Infrapatellar medially & laterally PT-OP-T Assessment and Plan Start: 03/24/19 18:29 Freq: Status: Active Protocol: Document 04/04/19 10:00 GGD (Rec: 04/04/19 11:07 GGD [id number]) Physical Therapy Assessment Assessment Summary Assessment Pt improved knee extension with decrease in pain with treatment. He had improved gait and decrease in limp and pain with gait with SPC. Physical Therapy Plan Frequency and Duration Frequency of Treatment 2x/Week Plan of Care Start Date 03/27/19 Plan of Care End Date 04/28/19 Next Visit Focus/Plan Next Note Type Treatment Note Next Visit Plan ASSESS BP & HR prior to exercise. Check response to US and check breathing and ability to stabilize the core with TA contraction. Try getting pt in to aquatic therapy (place on wait list). Start Gait training with use of cane, progress strengthening ex's, and ROM to improve L knee ext; on land end with modalities (US, ice/E -stim, laser).
--- NOTE | 2019-04-07 13:35 | PT.OTN ---
Current Diagnoses Bilateral primary osteoarthritis of knee (04/07/19) Pain in right knee (04/07/19) Pain in left knee (04/07/19) Other reduced mobility (04/07/19) Physical Therapy Treatment Note PT-OP-A Visit Information Start: 03/24/19 18:29 Freq: Status: Active Protocol: Document 04/07/19 09:47 SAK (Rec: 04/07/19 10:30 SAK [id number]) Out-Patient Physical Therapy Visit Information Visit Information Visit Type Treatment Note Visit Start Time 09:45 Visit Stop Time 10:23 Total Visit Minutes 54 Visit Number 4 Number of TOMOGRAPHIC TECH Visits 1 Evaluation Information Evaluation Date 03/27/19 PT-OP-B Current Condition Start: 03/24/19 18:29 Freq: Status: Active Protocol: Document 03/27/19 11:18 LRN (Rec: 03/27/19 12:43 LRN [id number]) Current Condition History of Current Condition Onset Date R knee 2003, L knee 2001 Current Complaints Bilateral sharp pains in the knee. L knee has given out going down stairs History of Current Condition Has always walked with a limp and it has been getting bad lately. 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 Must have PT before receiving an MRI. Last year was not able to receive PT because the blood pressure was too high. Blood pressure is now below 160/100, but the heart rate drops sometimes too low (35 bpm). Nest appt with paper machine backtender is 04/14/19, and has an appt with a hormone/ gland specialist on 04/03/19. L knee is worse than the right . L knee pain can be sharp from the infrapatellar to the suprapatellar region. Feels the right side is bad because it compensates for the left. He has been off his feet so today his knees are not bad. Pain is with movement and with twisting. 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 Prior Treatments and Tests R knee arthroscopic surgery to clean it. Treatment Goals Patient/Caregiver Goals Pt goal is to not hurt anymore . His goal is to complete 4 weeks of therapy and get an MRI Prior Functional Status Baseline Function- ADL's Independent Baseline Function- Mobility Independent Baseline Function- Gait 2009 used cane because of L knee pain. Baseline Function- Work/School Worked 60-80 hours a week. Baseline Function- Other Limited with working tolerance . Currently not working. Walked up to 15-20 mile a day 4 yrs ago. Current Functional Impairments (Reported) Functional Limitations- Mobility/Gait Limited to 1-2 miles Functional Limitations- Work/School Currently limiting work 2 to 20 hrs/week due to knee pain. Functional Limitations- Other Stair ambulation sometimes one stepping going up, always one stepping descending (leading with left). Personal Factors Other Personal Factors That May Effect Dizziness Therapy/Recovery Feels like passing out when coughing Depression PT-OP-C Subjective Start: 03/24/19 18:29 Freq: Status: Active Protocol: Document 04/07/19 09:47 SAK (Rec: 04/07/19 10:30 SAK [id number]) OP-PT Subjective Patient Comments Patient Comments No new c/o. Compliant to HEP, continues to have knee pain PT-OP-H Neuro Start: 03/24/19 18:29 Freq: Status: Active Protocol: Document 03/29/19 10:33 LRN (Rec: 03/29/19 11:22 LRN [id number]) Vital Signs Pulse R index finger Pulse at Rest (bpm) 47 Pulse Assessment Method Pulse Ox/Monitor Blood Pressure Sitting Blood Pressure (90/60-120/80 mmHg) 120/84 H Blood Pressure Source Manual Cuff Comments Vital Signs Comments S/P therapy, Supine: HR 45, BP 140/82 PT-OP-J Posture/Palpation/Skin Start: 03/24/19 18:29 Freq: Status: Active Protocol: Document 03/27/19 11:18 LRN (Rec: 03/28/19 16:23 LRN [id number]) Posture Evaluation Comments Posture Comments In standing: Pt stands more on his R LE ~60%. He has mild varus on the right, increased lumbar lordosis and a forward head. Palpation Assessment Location L & R knee Palpation Location Medial joint line Palpation Findings Tenderness L knee Palpation Location L patella superiorly, inferiorly and inferolateral Palpation Findings Tenderness PT-OP-K Range of Motion Start: 03/24/19 18:29 Freq: Status: Active Protocol: Document 03/27/19 11:18 LRN (Rec: 03/28/19 16:23 LRN [id number]) Hip Goniometric Range of Motion Hip Right Passive Straight Leg Raise 80 Left Passive Straight Leg Raise 70 Knee Goniometric Range of Motion Knee Right Patient Position Supine Flexion Active (degrees) 140 Extension Active (degrees) 5 Left Patient Position Supine Flexion Active (degrees) 140 Extension Active (degrees) 12 Knee ROM Limitations Knee ROM Limitations Pain Comments Extension Active measurement: is lacking extension in degrees PT-OP-L Special Tests Start: 03/24/19 18:29 Freq: Status: Active Protocol: Document 03/27/19 11:18 LRN (Rec: 03/28/19 16:23 LRN [id number]) Special Tests Knee Special Tests Valgus- 25 Degrees Test Results + left Comments Left: Medial knee Pain with testing. Right: Lateral knee Pain with testing. Anterior Draw Test Results Bilateral: Increased forward translation with end stop PT-OP-M Strength Start: 03/24/19 18:29 Freq: Status: Active Protocol: Document 03/27/19 11:18 LRN (Rec: 03/28/19 16:23 LRN [id number]) Knee Strength Knee Manual Muscle Testing Right Reason Not Measured WFL Left Reason Not Measured WFL PT-OP-Q Treatments Start: 03/24/19 18:29 Freq: Status: Active Protocol: Document 04/07/19 09:47 SAK (Rec: 04/07/19 10:30 SAK [id number]) Cardio Equipment Recumbent Bicycle Duration (Minutes) 5 Resistance 3 Seat Position 4 Therapeutic Exercises Supine Exercises 1 Supine Exercise Name qaud set with progressing knee extension Reps/Minutes 3' TA Supine Exercise Name TA Reps/Minutes 3' Comments cueing needed, pt not yet able to perform correctly SLR 1 O'Clock Supine Exercise Name SLR 1 O'Clock Side left Resistance 1# Reps/Minutes 10 x 3 SLR Supine Exercise Name Foot @ 11 Resistance 0, 1#, 2# Reps/Minutes 10 x each slowly SLR 12 O'clock Supine Exercise Name SLR foot 12 O'Clock Side left Resistance 9# Reps/Minutes 10x slowly Sidelying Exercises quad stretch Reps/Minutes 2x30 Sitting Exercises hamstring Reps/Minutes 2x30 Standing Exercises HC stretch Reps/Minutes 2x30 2 Standing Exercise Name TKE Side bilateral Resistance Level 1 band Reps/Minutes 10x each 1 Standing Exercise Name hamstring stretch Reps/Minutes 2' Gait Training Gait Activity 1 Description gait training with SPC Device Used SPC Level of Assistance cueing Surface level Distance/Duration 200 Comments cues for symmetry, decreased limp, correct sequencing with cane Manual Therapy Treatment Taping Knees Body Location Medial [place] left Patella Treatment Focus Alignment correction Type of Tape Kinesio Tape Skin Inspection Pt agreeable to taping on legs without shaving. Comments Pt instructed to remove before next appointment and to remove with signs of allergic reaction, with discussion of possible symptoms. Self-Care/Home Management Treatment Activities Self-Care/Home Management Activities Pt to remove K-tape before next appointment or within 5 days. PT-OP-R Modalities Start: 03/24/19 18:29 Freq: Status: Active Protocol: Document 04/07/19 09:47 [facility] (Rec: 04/07/19 10:30 [facility] [id number]) Hot Pack/Cold Pack Treatment Cold Pack Location bilateral knees Patient Position Supine Treatment Duration (minutes) 10 Patient Tolerance Good Comments small towel roll under left knee, right LE elevated on bolster Ultrasound Therapy Treatment L knee Treatment Duration (minutes) 8 Patient Position Supine Coupling Medium Ultrasound Gel Mode Setting Pulsed Duty Cycle 50% Intensity Setting (w/cm2) 1.0 Comments Infrapatellar medially & laterally PT-OP-T Assessment and Plan Start: 03/24/19 18:29 Freq: Status: Active Protocol: Document 04/07/19 09:47 [facility] (Rec: 04/07/19 10:30 [facility] [id number]) Physical Therapy Assessment Goals Two Impairment Bilateral knee pain (L rated 9 /10, R rated 7/10) Senior Living Goal (LTG) Decrease knee pain with pt able to tolerate increased tolerance to walking (>1-2 miles) and improved tolerance to working. One Impairment Lacks appropriate HEP Designated Broker Goal (LTG) Pt will be independent with a self care HEP. LTG Duration 04/28/19 Assessment Summary Assessment BP 160/94 sitting after warm- up on ex bike. Fair tolerance for ther ex, improvement in left knee extension with ther ex though still lacking full extension. Trial ice to knees after ther ex, left knee in extension with small towel roll under due to intolerance for full extension Physical Therapy Plan Frequency and Duration Frequency of Treatment 2x/Week Plan of Care Start Date 03/27/19 Plan of Care End Date 04/28/19 Therapeutic Interventions Therapeutic Interventions Aquatic Therapy Gait Training Home Exercise Program Manual Therapy Neuromuscular Re-education Patient/Caregiver Education Self-Care/Home Management Soft Tissue Mobilization Taping Therapeutic Exercises Modalities Cold Pack/Ice Massage Electric Stimulation Hot Packs Ultrasound Next Visit Focus/Plan Next Note Type Treatment Note Next Visit Plan Continue PT per POC, monitor BP and HR, trial aquatic PT when able to be scheduled.
--- NOTE | 2019-04-11 10:40 | PT-OP ANOTE ---
Pt cancelled due to sickess.
--- NOTE | 2019-04-13 12:52 | PT.OTN ---
Current Diagnoses Bilateral primary osteoarthritis of knee (04/13/19) Pain in right knee (04/13/19) Pain in left knee (04/13/19) Other reduced mobility (04/13/19) Physical Therapy Treatment Note PT-OP-A Visit Information Start: 03/24/19 18:29 Freq: Status: Active Protocol: Document 04/13/19 11:20 LRN (Rec: 04/13/19 12:08 LRN [id number]) Out-Patient Physical Therapy Visit Information Visit Information Visit Type Treatment Note Visit Start Time 11:20 Visit Stop Time 12:08 Total Visit Minutes 48 Visit Number 5 Number of STAFF DEVELOPMENT MANAGER Visits 1 Evaluation Information Evaluation Date 03/27/19 Precautions Precautions Uncontrolled HBP Dizziness Passing out feeling when coughing PT-OP-B Current Condition Start: 03/24/19 18:29 Freq: Status: Active Protocol: Document 03/27/19 11:18 LRN (Rec: 03/27/19 12:43 LRN [id number]) Current Condition History of Current Condition Onset Date R knee 2003, L knee 2001 Current Complaints Bilateral sharp pains in the knee. L knee has given out going down stairs History of Current Condition Has always walked with a limp and it has been getting bad lately. 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 Must have PT before receiving an MRI. Last year was not able to receive PT because the blood pressure was too high. Blood pressure is now below 160/100, but the heart rate drops sometimes too low (35 bpm). Nest appt with hospitality recruiter is 04/14/19, and has an appt with a hormone/ gland specialist on 04/03/19. L knee is worse than the right . L knee pain can be sharp from the infrapatellar to the suprapatellar region. Feels the right side is bad because it compensates for the left. He has been off his feet so today his knees are not bad. Pain is with movement and with twisting. 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 Prior Treatments and Tests R knee arthroscopic surgery to clean it. Treatment Goals Patient/Caregiver Goals Pt goal is to not hurt anymore . His goal is to complete 4 weeks of therapy and get an MRI Prior Functional Status Baseline Function- ADL's Independent Baseline Function- Mobility Independent Baseline Function- Gait 2009 used cane because of L knee pain. Baseline Function- Work/School Worked 60-80 hours a week. Baseline Function- Other Limited with working tolerance . Currently not working. Walked up to 15-20 mile a day 4 yrs ago. Current Functional Impairments (Reported) Functional Limitations- Mobility/Gait Limited to 1-2 miles Functional Limitations- Work/School Currently limiting work 2 to 20 hrs/week due to knee pain. Functional Limitations- Other Stair ambulation sometimes one stepping going up, always one stepping descending (leading with left). Personal Factors Other Personal Factors That May Effect Dizziness Therapy/Recovery Feels like passing out when coughing Depression PT-OP-C Subjective Start: 03/24/19 18:29 Freq: Status: Active Protocol: Document 04/13/19 11:20 LRN (Rec: 04/13/19 12:08 LRN [id number]) OP-PT Subjective Patient Comments Patient Comments No new c/o. Seeing Dr. Daigle, hospitality recruiter tomorrow. PT-OP-H Neuro Start: 03/24/19 18:29 Freq: Status: Active Protocol: Document 03/29/19 10:33 LRN (Rec: 03/29/19 11:22 LRN [id number]) Vital Signs Pulse R index finger Pulse at Rest (bpm) 47 Pulse Assessment Method Pulse Ox/Monitor Blood Pressure Sitting Blood Pressure (90/60-120/80 mmHg) 120/84 H Blood Pressure Source Manual Cuff Comments Vital Signs Comments S/P therapy, Supine: HR 45, BP 140/82 PT-OP-J Posture/Palpation/Skin Start: 03/24/19 18:29 Freq: Status: Active Protocol: Document 03/27/19 11:18 LRN (Rec: 03/28/19 16:23 LRN [id number]) Posture Evaluation Comments Posture Comments In standing: Pt stands more on his R LE ~60%. He has mild varus on the right, increased lumbar lordosis and a forward head. Palpation Assessment Location L & R knee Palpation Location Medial joint line Palpation Findings Tenderness L knee Palpation Location L patella superiorly, inferiorly and inferolateral Palpation Findings Tenderness PT-OP-K Range of Motion Start: 03/24/19 18:29 Freq: Status: Active Protocol: Document 03/27/19 11:18 LRN (Rec: 03/28/19 16:23 LRN [id number]) Hip Goniometric Range of Motion Hip Right Passive Straight Leg Raise 80 Left Passive Straight Leg Raise 70 Knee Goniometric Range of Motion Knee Right Patient Position Supine Flexion Active (degrees) 140 Extension Active (degrees) 5 Left Patient Position Supine Flexion Active (degrees) 140 Extension Active (degrees) 12 Knee ROM Limitations Knee ROM Limitations Pain Comments Extension Active measurement: is lacking extension in degrees PT-OP-L Special Tests Start: 03/24/19 18:29 Freq: Status: Active Protocol: Document 03/27/19 11:18 LRN (Rec: 03/28/19 16:23 LRN [id number]) Special Tests Knee Special Tests Valgus- 25 Degrees Test Results + left Comments Left: Medial knee Pain with testing. Right: Lateral knee Pain with testing. Anterior Draw Test Results Bilateral: Increased forward translation with end stop PT-OP-M Strength Start: 03/24/19 18:29 Freq: Status: Active Protocol: Document 03/27/19 11:18 LRN (Rec: 03/28/19 16:23 LRN [id number]) Knee Strength Knee Manual Muscle Testing Right Reason Not Measured WFL Left Reason Not Measured WFL PT-OP-Q Treatments Start: 03/24/19 18:29 Freq: Status: Active Protocol: Document 04/13/19 11:20 LRN (Rec: 04/13/19 12:08 LRN [id number]) Cardio Equipment Recumbent Bicycle Duration (Minutes) 6 Resistance 3 Seat Position 4 Other Working NUHA perceived exertion scale 11 fairly light -13 somewhat hard Therapeutic Exercises Supine Exercises 1 Supine Exercise Name qaud set with progressing knee extension Reps/Minutes 3' TA Supine Exercise Name TA Comments Performed before each exercise SLR 1 O'Clock Supine Exercise Name SLR 1 O'Clock Side left Resistance 2#, 3# Reps/Minutes 8 x 3 SLR Supine Exercise Name Foot @ 11 Resistance 2#, 3# Reps/Minutes 8x1 each SLR 12 O'clock Supine Exercise Name SLR foot 12 O'Clock Side left Resistance 9# Reps/Minutes 10x slowly Chest breathing w/TA tightening Supine Exercise Name Chest breathing w/TA tightening Reps/Minutes 3' Comments cuing needed Sidelying Exercises quad stretch Sidelying Exercise Name Quad stretch Side left Reps/Minutes 60 x 2 Comments Passive & AA stretch Standing Exercises HC stretch Equipment Used LUX Reps/Minutes 60 x 1 PT-OP-R Modalities Start: 03/24/19 18:29 Freq: Status: Active Protocol: Document 04/07/19 09:47 SAK (Rec: 04/07/19 10:30 SAK [id number]) Hot Pack/Cold Pack Treatment Cold Pack Location bilateral knees Patient Position Supine Treatment Duration (minutes) 10 Patient Tolerance Good Comments small towel roll under left knee, right LE elevated on bolster Ultrasound Therapy Treatment L knee Treatment Duration (minutes) 8 Patient Position Supine Coupling Medium Ultrasound Gel Mode Setting Pulsed Duty Cycle 50% Intensity Setting (w/cm2) 1.0 Comments Infrapatellar medially & laterally PT-OP-T Assessment and Plan Start: 03/24/19 18:29 Freq: Status: Active Protocol: Document 04/13/19 11:20 LRN (Rec: 04/13/19 12:08 LRN [id number]) Physical Therapy Assessment Assessment Summary Assessment BP 155/99 nd HR 42 to start. He is to keep his systolic blood pressure 140 or below. PT assessment: L knee instability with possible ligamentous laxity of his MCL and ACL, and R knee laxity of the MCL. Of the L knee he is limited in weight bearing due to sharp knee pain and appears to get slight relief of pain with patella gliding medially with extension. His R knee worsened due to excessive weight bearing from compensating for his L knee pain. Physical Therapy Plan Frequency and Duration Frequency of Treatment 2x/Week Plan of Care Start Date 03/27/19 Plan of Care End Date 04/28/19 Next Visit Focus/Plan Next Note Type Progress Note Next Visit Plan New POC probably needed due to scheduling difficulty. ASSESS BP & HR prior to exercise, trial aquatic PT when able to be scheduled. Check pt's response to K-tape on initial application for medial glide, gait training with use of cane, progress strengthening ex's and ROM to improve L knee ext; end with modalities (US, ice/E-stim, laser).
--- NOTE | 2019-04-27 14:33 | PT.OTN ---
Current Diagnoses Bilateral primary osteoarthritis of knee (04/27/19) Pain in right knee (04/27/19) Pain in left knee (04/27/19) Other reduced mobility (04/27/19) Physical Therapy Treatment Note PT-OP-A Visit Information Start: 03/24/19 18:29 Freq: Status: Active Protocol: Document 04/27/19 10:42 LRN (Rec: 04/27/19 11:25 LRN [id number]) Out-Patient Physical Therapy Visit Information Visit Information Visit Type Treatment Note Visit Note Starting BP (after walking into ex room): 160/88, HR 49. Ending BP: 168/86 Visit Start Time 10:42 Visit Stop Time 11:25 Total Visit Minutes 43 Visit Number 6 Evaluation Information Evaluation Date 03/27/19 Precautions Precautions Uncontrolled HBP Dizziness Passing out feeling when coughing PT-OP-B Current Condition Start: 03/24/19 18:29 Freq: Status: Active Protocol: Document 03/27/19 11:18 LRN (Rec: 03/27/19 12:43 LRN [id number]) Current Condition History of Current Condition Onset Date R knee 2003, L knee 2001 Current Complaints Bilateral sharp pains in the knee. L knee has given out going down stairs History of Current Condition Has always walked with a limp and it has been getting bad lately. 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 Must have PT before receiving an MRI. Last year was not able to receive PT because the blood pressure was too high. Blood pressure is now below 160/100, but the heart rate drops sometimes too low (35 bpm). Nest appt with recovery operator is 04/14/19, and has an appt with a hormone/ gland specialist on 04/03/19. L knee is worse than the right . L knee pain can be sharp from the infrapatellar to the suprapatellar region. Feels the right side is bad because it compensates for the left. He has been off his feet so today his knees are not bad. Pain is with movement and with twisting. 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 Prior Treatments and Tests R knee arthroscopic surgery to clean it. Treatment Goals Patient/Caregiver Goals Pt goal is to not hurt anymore . His goal is to complete 4 weeks of therapy and get an MRI Prior Functional Status Baseline Function- ADL's Independent Baseline Function- Mobility Independent Baseline Function- Gait 2009 used cane because of L knee pain. Baseline Function- Work/School Worked 60-80 hours a week. Baseline Function- Other Limited with working tolerance . Currently not working. Walked up to 15-20 mile a day 4 yrs ago. Current Functional Impairments (Reported) Functional Limitations- Mobility/Gait Limited to 1-2 miles Functional Limitations- Work/School Currently limiting work 2 to 20 hrs/week due to knee pain. Functional Limitations- Other Stair ambulation sometimes one stepping going up, always one stepping descending (leading with left). Personal Factors Other Personal Factors That May Effect Dizziness Therapy/Recovery Feels like passing out when coughing Depression PT-OP-C Subjective Start: 03/24/19 18:29 Freq: Status: Active Protocol: Document 04/27/19 10:42 LRN (Rec: 04/27/19 11:25 LRN [id number]) OP-PT Subjective Patient Comments Patient Comments States his knees has been feeling better. L knee: pain 3 -4/10 (worst is 6-7/10); R knee pain is 1/10 (worst is 3- 4/10). He has been using his cane and has been working more . He has sharp pain in the R knee with gait sometimes. OP-PT Pain Assessment Pain Assessment Grid Paper Pain Assessment Grid Completed No Location R knee Pain Location Details Anterior knee Intensity 4 Scale Used Numeric (1 - 10) Description Aching,Sharp L knee Pain Location Details In knee joint Intensity 7 Scale Used Numeric (1 - 10) Description Aching Comments Pain Comments Pt pain documented are at its worst. Pain today is R is 1/ 10; L is 3-4/10. PT-OP-H Neuro Start: 03/24/19 18:29 Freq: Status: Active Protocol: Document 03/29/19 10:33 LRN (Rec: 03/29/19 11:22 LRN [id number]) Vital Signs Pulse R index finger Pulse at Rest (bpm) 47 Pulse Assessment Method Pulse Ox/Monitor Blood Pressure Sitting Blood Pressure (90/60-120/80 mmHg) 120/84 H Blood Pressure Source Manual Cuff Comments Vital Signs Comments S/P therapy, Supine: HR 45, BP 140/82 PT-OP-J Posture/Palpation/Skin Start: 03/24/19 18:29 Freq: Status: Active Protocol: Document 03/27/19 11:18 LRN (Rec: 03/28/19 16:23 LRN [id number]) Posture Evaluation Comments Posture Comments In standing: Pt stands more on his R LE ~60%. He has mild varus on the right, increased lumbar lordosis and a forward head. Palpation Assessment Location L & R knee Palpation Location Medial joint line Palpation Findings Tenderness L knee Palpation Location L patella superiorly, inferiorly and inferolateral Palpation Findings Tenderness PT-OP-K Range of Motion Start: 03/24/19 18:29 Freq: Status: Active Protocol: Document 03/27/19 11:18 LRN (Rec: 03/28/19 16:23 LRN [id number]) Hip Goniometric Range of Motion Hip Right Passive Straight Leg Raise 80 Left Passive Straight Leg Raise 70 Knee Goniometric Range of Motion Knee Right Patient Position Supine Flexion Active (degrees) 140 Extension Active (degrees) 5 Left Patient Position Supine Flexion Active (degrees) 140 Extension Active (degrees) 12 Knee ROM Limitations Knee ROM Limitations Pain Comments Extension Active measurement: is lacking extension in degrees PT-OP-L Special Tests Start: 03/24/19 18:29 Freq: Status: Active Protocol: Document 03/27/19 11:18 LRN (Rec: 03/28/19 16:23 LRN [id number]) Special Tests Knee Special Tests Valgus- 25 Degrees Test Results + left Comments Left: Medial knee Pain with testing. Right: Lateral knee Pain with testing. Anterior Draw Test Results Bilateral: Increased forward translation with end stop PT-OP-M Strength Start: 03/24/19 18:29 Freq: Status: Active Protocol: Document 03/27/19 11:18 LRN (Rec: 03/28/19 16:23 LRN [id number]) Knee Strength Knee Manual Muscle Testing Right Reason Not Measured WFL Left Reason Not Measured WFL PT-OP-Q Treatments Start: 03/24/19 18:29 Freq: Status: Active Protocol: Document 04/27/19 10:42 LRN (Rec: 04/27/19 11:25 LRN [id number]) Therapeutic Exercises Supine Exercises 1 Supine Exercise Name qaud set with progressing knee extension Reps/Minutes 3' TA Supine Exercise Name TA Comments Performed before each exercise SLR 1 O'Clock Supine Exercise Name SLR 1 O'Clock Side left Resistance 3# Reps/Minutes 8 x 3 SLR Supine Exercise Name Foot @ 11 Resistance 3# Reps/Minutes 8x1 each SLR 12 O'clock Supine Exercise Name SLR foot 12 O'Clock Side left Resistance 9# Reps/Minutes 10x slowly Chest breathing w/TA tightening Supine Exercise Name Chest breathing w/TA tightening Reps/Minutes 3' Comments cuing needed Sitting Exercises hamstring Sitting Exercise Name Hamstring w/neural glide Side bilateral Reps/Minutes 6' Manual Therapy Treatment Joint Mobilizations knees Joint knees Direction PA Tib/Fib Body Position Supine Reps/Duration 8' Taping Knees Body Location Medial [place] Right Patella Treatment Focus Alignment correction Type of Tape Kinesio Tape Skin Inspection Pt agreeable to taping on legs without shaving. Comments Pt instructed to remove before next appointment and to remove with signs of allergic reaction, with discussion of possible symptoms. Manual Techniques Myokinesthetic stretching Type ARIANNE stretch to Jonathan Quadriceps & Iliopsoas Body Location Quadriceps & Iliopsoas Body Position Sidelying Comments Good tolerance to stretch PT-OP-R Modalities Start: 03/24/19 18:29 Freq: Status: Active Protocol: Document 04/27/19 10:42 LRN (Rec: 04/27/19 11:25 LRN [id number]) Electric Stimulation Electric Stimulation Interferential Current (IFC) Body Location R knee Duration (Minutes) 10 Target/Sweep Sweep Patient Position Hooklying Combined With Heat/Cold Cold Pack PT-OP-T Assessment and Plan Start: 03/24/19 18:29 Freq: Status: Active Protocol: Document 04/27/19 10:42 LRN (Rec: 04/27/19 11:25 LRN [id number]) Physical Therapy Assessment Rehab Potential Rehabilitation Potential Fair Evaluation Complexity Number of Personal Factors/Comorbidities 3 or More Number of Body Systems Impaired 4 or More Clinical Presentation at Evaluation Evolving Impairments Impairments Activity Tolerance,Gait,Pain, Posture,ROM,Strength Other Impairments Uncontrolled HBP Other Concerns Age Related Concerns Effect on work and social life Barriers to Rehabilitation Co-morbidities Goals Two Impairment Bilateral knee pain (L rated 9 /10, R rated 7/10) Shelter Goal (LTG) Decrease knee pain with pt able to tolerate increased tolerance to walking (>1-2 miles) and improved tolerance to working. LTG Duration 05/19/19 (04/27/19: Improving, pain is less bilaterally) One Impairment Lacks appropriate HEP Shelter Goal (LTG) Pt will be independent with a self care HEP. LTG Duration 05/19/19 (04/27/19: Progressing ) Assessment Summary Assessment Blood pressure has been good for participation in therapy the last 2 visits. Pt showed improved L knee mobility after stretching. He may have mild excursion of his upper chest with deep breathing. R knee, sharp pain was less noticeable with K-tape. Gait with cane is good. Physical Therapy Plan Frequency and Duration Frequency of Treatment 2x/Week Plan of Care Start Date 03/27/19 Plan of Care End Date 05/19/19 Therapeutic Interventions Therapeutic Interventions Aquatic Therapy,Gait Training, Home Exercise Program,Manual Therapy,Neuromuscular Re- education,Patient/Caregiver Education,Self-Care/Home Management,Soft Tissue Mobilization,Taping, Therapeutic Exercises Modalities Cold Pack/Ice Massage,Electric Stimulation,Hot Packs, Ultrasound Next Visit Focus/Plan Next Visit Plan ASSESS BP & HR prior to exercise. Check response to K -tape and use of E-Stim on R knee. Progress ability to stabilize the core with TA contraction. Continue to work on improving upper chest excursion with breathing. Try getting pt in to aquatic therapy (place on wait list). Progress strengthening ex's, and ROM to improve L > R knee ext; on land end with modalities (US, ice/E-stim, laser).
--- NOTE | 2019-04-27 14:34 | PT.OPPOC ---
Current Diagnoses Bilateral primary osteoarthritis of knee (04/27/19) Pain in right knee (04/27/19) Pain in left knee (04/27/19) Other reduced mobility (04/27/19) Visit Care Team Role Provider Type Lara Dickson MD Primary Care Provider Physician Specialty: Family Practice Address: [address] [place] [address], [facility] [place], [address] Email: [email or web address] Jaylen Nunes PA-C Attending Provider Non-Staff Specialty: Medical Address: [address] [place] [address], [address], [place], [address] Email: Plan Of Care PT-OP-T Assessment and Plan Start: 03/24/19 18:29 Freq: Status: Active Protocol: Document 04/27/19 10:42 LRN (Rec: 04/27/19 11:25 LRN [id number]) Physical Therapy Assessment Rehab Potential Rehabilitation Potential Fair Evaluation Complexity Number of Personal Factors/Comorbidities 3 or More Number of Body Systems Impaired 4 or More Clinical Presentation at Evaluation Evolving Impairments Impairments Activity Tolerance,Gait,Pain, Posture,ROM,Strength Other Impairments Uncontrolled HBP Other Concerns Age Related Concerns Effect on work and social life Barriers to Rehabilitation Co-morbidities Goals Two Impairment Bilateral knee pain (L rated 9 /10, R rated 7/10) Glass Belt Sander Goal (LTG) Decrease knee pain with pt able to tolerate increased tolerance to walking (>1-2 miles) and improved tolerance to working. LTG Duration 05/19/19 (04/27/19: Improving, pain is less bilaterally) One Impairment Lacks appropriate HEP Glass Belt Sander Goal (LTG) Pt will be independent with a self care HEP. LTG Duration 05/19/19 (04/27/19: Progressing ) Assessment Summary Assessment Blood pressure has been good for participation in therapy the last 2 visits. Pt showed improved L knee mobility after stretching. He may have mild excursion of his upper chest with deep breathing. R knee, sharp pain was less noticeable with K-tape. Gait with cane is good. Physical Therapy Plan Frequency and Duration Frequency of Treatment 2x/Week Plan of Care Start Date 03/27/19 Plan of Care End Date 05/19/19 Therapeutic Interventions Therapeutic Interventions Aquatic Therapy,Gait Training, Home Exercise Program,Manual Therapy,Neuromuscular Re- education,Patient/Caregiver Education,Self-Care/Home Management,Soft Tissue Mobilization,Taping, Therapeutic Exercises Modalities Cold Pack/Ice Massage,Electric Stimulation,Hot Packs, Ultrasound Next Visit Focus/Plan Next Visit Plan ASSESS BP & HR prior to exercise. Check response to K -tape and use of E-Stim on R knee. Progress ability to stabilize the core with TA contraction. Continue to work on improving upper chest excursion with breathing. Try getting pt in to aquatic therapy (place on wait list). Progress strengthening ex's, and ROM to improve L > R knee ext; on land end with modalities (US, ice/E-stim, laser). Plan of Care Dates Plan of Care Start Date 03/27/19 Plan of Care End Date 05/19/19 Please Sign and Return: I have reviewed this Plan of Care and certify that the skilled therapy services above are required to meet the patient?s needs. Physician Signature Date Printed Name and Credentials Clinical Instructor Signature Printed Name and Credentials
--- NOTE | 2019-05-03 11:00 | PT.OTN ---
Current Diagnoses Bilateral primary osteoarthritis of knee (05/03/19) Pain in right knee (05/03/19) Pain in left knee (05/03/19) Other reduced mobility (05/03/19) Physical Therapy Treatment Note PT-OP-A Visit Information Start: 03/24/19 18:29 Freq: Status: Active Protocol: Document 05/03/19 11:00 SAK (Rec: 05/04/19 08:58 SAK [id number]) Out-Patient Physical Therapy Visit Information Visit Information Visit Type Aquatic Treatment Note Visit Note BP 177/90, HR 54 after exciting pool Visit Start Time 11:00 Visit Stop Time 11:45 Total Visit Minutes 45 Visit Number 7 Evaluation Information Evaluation Date 03/27/19 Precautions Precautions Uncontrolled HBP Dizziness Passing out feeling when coughing PT-OP-B Current Condition Start: 03/24/19 18:29 Freq: Status: Active Protocol: Document 03/27/19 11:18 LRN (Rec: 03/27/19 12:43 LRN [id number]) Current Condition History of Current Condition Onset Date R knee 2003, L knee 2001 Current Complaints Bilateral sharp pains in the knee. L knee has given out going down stairs History of Current Condition Has always walked with a limp and it has been getting bad lately. 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 Must have PT before receiving an MRI. Last year was not able to receive PT because the blood pressure was too high. Blood pressure is now below 160/100, but the heart rate drops sometimes too low (35 bpm). Nest appt with casino manager is 04/14/19, and has an appt with a hormone/ gland specialist on 04/03/19. L knee is worse than the right . L knee pain can be sharp from the infrapatellar to the suprapatellar region. Feels the right side is bad because it compensates for the left. He has been off his feet so today his knees are not bad. Pain is with movement and with twisting. 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 Prior Treatments and Tests R knee arthroscopic surgery to clean it. Treatment Goals Patient/Caregiver Goals Pt goal is to not hurt anymore . His goal is to complete 4 weeks of therapy and get an MRI Prior Functional Status Baseline Function- ADL's Independent Baseline Function- Mobility Independent Baseline Function- Gait 2009 used cane because of L knee pain. Baseline Function- Work/School Worked 60-80 hours a week. Baseline Function- Other Limited with working tolerance . Currently not working. Walked up to 15-20 mile a day 4 yrs ago. Current Functional Impairments (Reported) Functional Limitations- Mobility/Gait Limited to 1-2 miles Functional Limitations- Work/School Currently limiting work 2 to 20 hrs/week due to knee pain. Functional Limitations- Other Stair ambulation sometimes one stepping going up, always one stepping descending (leading with left). Personal Factors Other Personal Factors That May Effect Dizziness Therapy/Recovery Feels like passing out when coughing Depression PT-OP-C Subjective Start: 03/24/19 18:29 Freq: Status: Active Protocol: Document 05/03/19 11:00 SAK (Rec: 05/04/19 08:58 SAK [id number]) OP-PT Subjective Patient Comments Patient Comments Excited to try aquatic PT, no new c/o. Continues to work with physician regarding BP. PT-OP-H Neuro Start: 03/24/19 18:29 Freq: Status: Active Protocol: Document 03/29/19 10:33 LRN (Rec: 03/29/19 11:22 LRN [id number]) Vital Signs Pulse R index finger Pulse at Rest (bpm) 47 Pulse Assessment Method Pulse Ox/Monitor Blood Pressure Sitting Blood Pressure (90/60-120/80 mmHg) 120/84 H Blood Pressure Source Manual Cuff Comments Vital Signs Comments S/P therapy, Supine: HR 45, BP 140/82 PT-OP-J Posture/Palpation/Skin Start: 03/24/19 18:29 Freq: Status: Active Protocol: Document 03/27/19 11:18 LRN (Rec: 03/28/19 16:23 LRN [id number]) Posture Evaluation Comments Posture Comments In standing: Pt stands more on his R LE ~60%. He has mild varus on the right, increased lumbar lordosis and a forward head. Palpation Assessment Location L & R knee Palpation Location Medial joint line Palpation Findings Tenderness L knee Palpation Location L patella superiorly, inferiorly and inferolateral Palpation Findings Tenderness PT-OP-K Range of Motion Start: 03/24/19 18:29 Freq: Status: Active Protocol: Document 03/27/19 11:18 LRN (Rec: 03/28/19 16:23 LRN [id number]) Hip Goniometric Range of Motion Hip Right Passive Straight Leg Raise 80 Left Passive Straight Leg Raise 70 Knee Goniometric Range of Motion Knee Right Patient Position Supine Flexion Active (degrees) 140 Extension Active (degrees) 5 Left Patient Position Supine Flexion Active (degrees) 140 Extension Active (degrees) 12 Knee ROM Limitations Knee ROM Limitations Pain Comments Extension Active measurement: is lacking extension in degrees PT-OP-L Special Tests Start: 03/24/19 18:29 Freq: Status: Active Protocol: Document 03/27/19 11:18 LRN (Rec: 03/28/19 16:23 LRN [id number]) Special Tests Knee Special Tests Valgus- 25 Degrees Test Results + left Comments Left: Medial knee Pain with testing. Right: Lateral knee Pain with testing. Anterior Draw Test Results Bilateral: Increased forward translation with end stop PT-OP-M Strength Start: 03/24/19 18:29 Freq: Status: Active Protocol: Document 03/27/19 11:18 LRN (Rec: 03/28/19 16:23 LRN [id number]) Knee Strength Knee Manual Muscle Testing Right Reason Not Measured WFL Left Reason Not Measured WFL PT-OP-Q Treatments Start: 03/24/19 18:29 Freq: Status: Active Protocol: Document 04/27/19 10:42 LRN (Rec: 04/27/19 11:25 LRN [id number]) Therapeutic Exercises Supine Exercises 1 Supine Exercise Name qaud set with progressing knee extension Reps/Minutes 3' TA Supine Exercise Name TA Comments Performed before each exercise SLR 1 O'Clock Supine Exercise Name SLR 1 O'Clock Side left Resistance 3# Reps/Minutes 8 x 3 SLR Supine Exercise Name Foot @ 11 Resistance 3# Reps/Minutes 8x1 each SLR 12 O'clock Supine Exercise Name SLR foot 12 O'Clock Side left Resistance 9# Reps/Minutes 10x slowly Chest breathing w/TA tightening Supine Exercise Name Chest breathing w/TA tightening Reps/Minutes 3' Comments cuing needed Sitting Exercises hamstring Sitting Exercise Name Hamstring w/neural glide Side bilateral Reps/Minutes 6' Manual Therapy Treatment Joint Mobilizations knees Joint knees Direction PA Tib/Fib Body Position Supine Reps/Duration 8' Taping Knees Body Location Medial [place] Right Patella Treatment Focus Alignment correction Type of Tape Kinesio Tape Skin Inspection Pt agreeable to taping on legs without shaving. Comments Pt instructed to remove before next appointment and to remove with signs of allergic reaction, with discussion of possible symptoms. Manual Techniques Myokinesthetic stretching Type ARIANNE stretch to Jonathan Quadriceps & Iliopsoas Body Location Quadriceps & Iliopsoas Body Position Sidelying Comments Good tolerance to stretch PT-OP-R Modalities Start: 03/24/19 18:29 Freq: Status: Active Protocol: Document 04/27/19 10:42 LRN (Rec: 04/27/19 11:25 LRN [id number]) Electric Stimulation Electric Stimulation Interferential Current (IFC) Body Location R knee Duration (Minutes) 10 Target/Sweep Sweep Patient Position Hooklying Combined With Heat/Cold Cold Pack PT-OP-S Aquatic Treatment Start: 05/04/19 08:59 Freq: Status: Active Protocol: Document 05/03/19 11:00 SAK (Rec: 05/09/19 14:05 SAK [id number]) Aquatics Treatment Pool Entry/Exit Pool Entry/Exit Method Stairs Assistance Standby Assistance Water Walking Mather October Water Level Chest Level Level of Assistance Verbal Cues Marching Water Level Chest Level Level of Assistance Verbal Cues Sideways Water Level Chest Level Level of Assistance Verbal Cues backward Water Level Chest Level Level of Assistance Verbal Cues forward Water Level Chest Level Level of Assistance Verbal Cues Lower Extremity Exercises hip ab/ad Body Position Standing Water Level Chest Level Reps/Duration 10x hip flex/ext Body Position Standing Water Level Chest Level Reps/Duration 10x knee flex/ext Body Position Standing Reps/Duration 10x squat Body Position Standing Water Level Chest Level Reps/Duration 10x heel raise, toe raise Body Position Standing Water Level Chest Level Reps/Duration 10x Lower Extremity Stretches quad Body Position Standing Water Level Chest Level Equipment Small Noodle Reps/Duration 2x30 HS, ITB, DD Body Position Standing Water Level Chest Level Equipment Small Noodle Reps/Duration 2x30 HC Body Position Standing Reps/Duration 2x, wall [place] Activities [place] Activities Bicycle,Cross Country,Running Equipment flotation belt Duration 10 Comments deep water hang, rest 1'x2 PT-OP-T Assessment and Plan Start: 03/24/19 18:29 Freq: Status: Active Protocol: Document 05/03/19 11:00 JIE (Rec: 05/04/19 08:58 [facility] [id number]) Physical Therapy Assessment Goals Two Impairment Bilateral knee pain (L rated 9 /10, R rated 7/10) Branch Operation Evaluation Manager Goal (LTG) Decrease knee pain with pt able to tolerate increased tolerance to walking (>1-2 miles) and improved tolerance to working. LTG Duration 05/19/19 (04/27/19: Improving, pain is less bilaterally) One Impairment Lacks appropriate HEP Snf Goal (LTG) Pt will be independent with a self care HEP. LTG Duration 05/19/19 (04/27/19: Progressing ) Assessment Summary Assessment Good tolerance for aquatic therapy with reported decrease in pain today. Physical Therapy Plan Frequency and Duration Frequency of Treatment 2x/Week Plan of Care Start Date 03/27/19 Plan of Care End Date 05/19/19 Therapeutic Interventions Therapeutic Interventions Aquatic Therapy,Gait Training, Home Exercise Program,Manual Therapy,Neuromuscular Re- education,Patient/Caregiver Education,Self-Care/Home Management,Soft Tissue Mobilization,Taping, Therapeutic Exercises Modalities Cold Pack/Ice Massage,Electric Stimulation,Hot Packs, Ultrasound Next Visit Focus/Plan Next Note Type Treatment Note Next Visit Plan Continue PT with combination land and aquatic-based.
--- NOTE | 2019-05-11 09:50 | PT.OTN ---
Current Diagnoses Bilateral primary osteoarthritis of knee (05/11/19) Pain in right knee (05/11/19) Pain in left knee (05/11/19) Other reduced mobility (05/11/19) Physical Therapy Treatment Note PT-OP-A Visit Information Start: 03/24/19 18:29 Freq: Status: Active Protocol: Document 05/11/19 09:04 LRN (Rec: 05/11/19 09:47 LRN [id number]) Out-Patient Physical Therapy Visit Information Visit Information Visit Type Treatment Note Visit Note BP 155/88, HR 49 after walking into ex room. After recumbent bike: BP 144/94. Visit Start Time 09:05 Visit Stop Time 09:49 Total Visit Minutes 44 Visit Number 8 Evaluation Information Evaluation Date 03/27/19 Precautions Precautions Uncontrolled HBP Dizziness Passing out feeling when coughing PT-OP-B Current Condition Start: 03/24/19 18:29 Freq: Status: Active Protocol: Document 03/27/19 11:18 LRN (Rec: 03/27/19 12:43 LRN [id number]) Current Condition History of Current Condition Onset Date R knee 2003, L knee 2001 Current Complaints Bilateral sharp pains in the knee. L knee has given out going down stairs History of Current Condition Has always walked with a limp and it has been getting bad lately. 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 Must have PT before receiving an MRI. Last year was not able to receive PT because the blood pressure was too high. Blood pressure is now below 160/100, but the heart rate drops sometimes too low (35 bpm). Nest appt with outreach clinician is 04/14/19, and has an appt with a hormone/ gland specialist on 04/03/19. L knee is worse than the right . L knee pain can be sharp from the infrapatellar to the suprapatellar region. Feels the right side is bad because it compensates for the left. He has been off his feet so today his knees are not bad. Pain is with movement and with twisting. 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 Prior Treatments and Tests R knee arthroscopic surgery to clean it. Treatment Goals Patient/Caregiver Goals Pt goal is to not hurt anymore . His goal is to complete 4 weeks of therapy and get an MRI Prior Functional Status Baseline Function- ADL's Independent Baseline Function- Mobility Independent Baseline Function- Gait 2009 used cane because of L knee pain. Baseline Function- Work/School Worked 60-80 hours a week. Baseline Function- Other Limited with working tolerance . Currently not working. Walked up to 15-20 mile a day 4 yrs ago. Current Functional Impairments (Reported) Functional Limitations- Mobility/Gait Limited to 1-2 miles Functional Limitations- Work/School Currently limiting work 2 to 20 hrs/week due to knee pain. Functional Limitations- Other Stair ambulation sometimes one stepping going up, always one stepping descending (leading with left). Personal Factors Other Personal Factors That May Effect Dizziness Therapy/Recovery Feels like passing out when coughing Depression PT-OP-C Subjective Start: 03/24/19 18:29 Freq: Status: Active Protocol: Document 05/11/19 09:04 LRN (Rec: 05/11/19 09:47 LRN [id number]) OP-PT Subjective Patient Comments Patient Comments Previously felt the K-tape was helpful in providing support, but it lasted only 2 days. After pool the sharp pain twitches were in the sides of the L knee instead of the anterior knee,. Sharp pain twitches with walking not quite as much. Not getting too many of the severe pain. PT-OP-H Neuro Start: 03/24/19 18:29 Freq: Status: Active Protocol: Document 03/29/19 10:33 LRN (Rec: 03/29/19 11:22 LRN [id number]) Vital Signs Pulse R index finger Pulse at Rest (bpm) 47 Pulse Assessment Method Pulse Ox/Monitor Blood Pressure Sitting Blood Pressure (90/60-120/80 mmHg) 120/84 H Blood Pressure Source Manual Cuff Comments Vital Signs Comments S/P therapy, Supine: HR 45, BP 140/82 PT-OP-J Posture/Palpation/Skin Start: 03/24/19 18:29 Freq: Status: Active Protocol: Document 03/27/19 11:18 LRN (Rec: 03/28/19 16:23 LRN [id number]) Posture Evaluation Comments Posture Comments In standing: Pt stands more on his R LE ~60%. He has mild varus on the right, increased lumbar lordosis and a forward head. Palpation Assessment Location L & R knee Palpation Location Medial joint line Palpation Findings Tenderness L knee Palpation Location L patella superiorly, inferiorly and inferolateral Palpation Findings Tenderness PT-OP-K Range of Motion Start: 03/24/19 18:29 Freq: Status: Active Protocol: Document 03/27/19 11:18 LRN (Rec: 03/28/19 16:23 LRN [id number]) Hip Goniometric Range of Motion Hip Right Passive Straight Leg Raise 80 Left Passive Straight Leg Raise 70 Knee Goniometric Range of Motion Knee Right Patient Position Supine Flexion Active (degrees) 140 Extension Active (degrees) 5 Left Patient Position Supine Flexion Active (degrees) 140 Extension Active (degrees) 12 Knee ROM Limitations Knee ROM Limitations Pain Comments Extension Active measurement: is lacking extension in degrees PT-OP-L Special Tests Start: 03/24/19 18:29 Freq: Status: Active Protocol: Document 03/27/19 11:18 LRN (Rec: 03/28/19 16:23 LRN [id number]) Special Tests Knee Special Tests Valgus- 25 Degrees Test Results + left Comments Left: Medial knee Pain with testing. Right: Lateral knee Pain with testing. Anterior Draw Test Results Bilateral: Increased forward translation with end stop PT-OP-M Strength Start: 03/24/19 18:29 Freq: Status: Active Protocol: Document 03/27/19 11:18 LRN (Rec: 03/28/19 16:23 LRN [id number]) Knee Strength Knee Manual Muscle Testing Right Reason Not Measured WFL Left Reason Not Measured WFL PT-OP-Q Treatments Start: 03/24/19 18:29 Freq: Status: Active Protocol: Document 05/11/19 09:04 LRN (Rec: 05/11/19 09:47 LRN [id number]) Cardio Equipment Recumbent Bicycle Duration (Minutes) 5 Resistance 8 Seat Position 5 Therapeutic Exercises Supine Exercises Hamstring/LE neural stretch Reps/Minutes 2' TA Supine Exercise Name TA Comments Performed before each exercise SLR 1 O'Clock Supine Exercise Name SLR 1 O'Clock Side left Resistance 9# Reps/Minutes 10x slowly SLR Supine Exercise Name Foot @ 11 Side left Resistance 9# Reps/Minutes 10x slowly SLR 12 O'clock Supine Exercise Name SLR foot 10 O'Clock Side left Resistance 9# Reps/Minutes 10x slowly Sitting Exercises hamstring Sitting Exercise Name Hamstring w/neural glide Side bilateral Reps/Minutes 6' Manual Therapy Treatment Taping Knees Body Location Medial [place] Right Patella Treatment Focus Alignment correction Type of Tape Kinesio Tape Skin Inspection Pt agreeable to taping on legs without shaving. Comments Pt instructed to remove before next appointment and to remove with signs of allergic reaction, with discussion of possible symptoms. PT-OP-R Modalities Start: 03/24/19 18:29 Freq: Status: Active Protocol: Document 05/11/19 09:04 LRN (Rec: 05/11/19 09:47 LRN [id number]) Electric Stimulation Electric Stimulation Interferential Current (IFC) Body Location L knee Duration (Minutes) 10 Intensity 16 Target/Sweep Sweep Patient Position Hooklying Combined With Heat/Cold Cold Pack Comments R knee not bothering him today , Sharp pains in L knee Hot Pack/Cold Pack Treatment Cold Pack Location bilateral knees Patient Position Supine Treatment Duration (minutes) 10 Patient Tolerance Good Comments left LE elevated on bolster PT-OP-S Aquatic Treatment Start: 05/04/19 08:59 Freq: Status: Active Protocol: Document 05/03/19 11:00 SAK (Rec: 05/09/19 14:05 SAK [id number]) Aquatics Treatment Pool Entry/Exit Pool Entry/Exit Method Stairs Assistance Standby Assistance Water Walking [place] March Water Level Chest Level Level of Assistance Verbal Cues Marching Water Level Chest Level Level of Assistance Verbal Cues Sideways Water Level Chest Level Level of Assistance Verbal Cues backward Water Level Chest Level Level of Assistance Verbal Cues forward Water Level Chest Level Level of Assistance Verbal Cues Lower Extremity Exercises hip ab/ad Body Position Standing Water Level Chest Level Reps/Duration 10x hip flex/ext Body Position Standing Water Level Chest Level Reps/Duration 10x knee flex/ext Body Position Standing Reps/Duration 10x squat Body Position Standing Water Level Chest Level Reps/Duration 10x heel raise, toe raise Body Position Standing Water Level Chest Level Reps/Duration 10x Lower Extremity Stretches quad Body Position Standing Water Level Chest Level Equipment Small Noodle Reps/Duration 2x30 HS, ITB, DD Body Position Standing Water Level Chest Level Equipment Small Noodle Reps/Duration 2x30 HC Body Position Standing Reps/Duration 2x, wall [place] Activities [place] Activities Bicycle,Cross Country,Running Equipment flotation belt Duration 10 Comments deep water hang, rest 1'x2 PT-OP-T Assessment and Plan Start: 03/24/19 18:29 Freq: Status: Active Protocol: Document 05/11/19 09:04 LRN (Rec: 05/11/19 09:47 LRN [id number]) Physical Therapy Assessment Assessment Summary Assessment Blood pressure within exercise range. Pt having a little less pain and not the severe pain. His knee mobility appears improved. Pt enjoyed the pool therapy and will benefit from continuation if scheduling permits, prior to seeing his MD at end of month. Physical Therapy Plan Frequency and Duration Frequency of Treatment 2x/Week Plan of Care Start Date 03/27/19 Plan of Care End Date 05/19/19 Therapeutic Interventions Therapeutic Interventions Aquatic Therapy,Gait Training, Home Exercise Program,Manual Therapy,Neuromuscular Re- education,Patient/Caregiver Education,Self-Care/Home Management,Soft Tissue Mobilization,Taping, Therapeutic Exercises Modalities Cold Pack/Ice Massage,Electric Stimulation,Hot Packs, Ultrasound Next Visit Focus/Plan Next Note Type Treatment Note Next Visit Plan Assess pt's response to K-tape and E-Stim. Continue PT with combination land and aquatic- based.
--- NOTE | 2019-05-15 12:41 | PT.OTN ---
Current Diagnoses Bilateral primary osteoarthritis of knee (05/15/19) Pain in right knee (05/15/19) Pain in left knee (05/15/19) Other reduced mobility (05/15/19) Physical Therapy Treatment Note PT-OP-A Visit Information Start: 03/24/19 18:29 Freq: Status: Active Protocol: Document 05/15/19 10:29 LRN (Rec: 05/15/19 11:17 LRN [id number]) Out-Patient Physical Therapy Visit Information Visit Information Visit Type Treatment Note Visit Note BP 158/90, HR 47 after walking into ex room. After recumbent stepper: BP: 158/88 ; HR 58 Visit Start Time 10:29 Visit Stop Time 11:23 Total Visit Minutes 54 Visit Number 9 Number of TUMBLER DRIER OPERATOR Visits 0 Evaluation Information Evaluation Date 03/27/19 Precautions Precautions Uncontrolled HBP Dizziness Passing out feeling when coughing PT-OP-B Current Condition Start: 03/24/19 18:29 Freq: Status: Active Protocol: Document 03/27/19 11:18 LRN (Rec: 03/27/19 12:43 LRN [id number]) Current Condition History of Current Condition Onset Date R knee 2003, L knee 2001 Current Complaints Bilateral sharp pains in the knee. L knee has given out going down stairs History of Current Condition Has always walked with a limp and it has been getting bad lately. 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 Must have PT before receiving an MRI. Last year was not able to receive PT because the blood pressure was too high. Blood pressure is now below 160/100, but the heart rate drops sometimes too low (35 bpm). Nest appt with wave solder offbearer is 04/14/19, and has an appt with a hormone/ gland specialist on 04/03/19. L knee is worse than the right . L knee pain can be sharp from the infrapatellar to the suprapatellar region. Feels the right side is bad because it compensates for the left. He has been off his feet so today his knees are not bad. Pain is with movement and with twisting. 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 Prior Treatments and Tests R knee arthroscopic surgery to clean it. Treatment Goals Patient/Caregiver Goals Pt goal is to not hurt anymore . His goal is to complete 4 weeks of therapy and get an MRI Prior Functional Status Baseline Function- ADL's Independent Baseline Function- Mobility Independent Baseline Function- Gait 2009 used cane because of L knee pain. Baseline Function- Work/School Worked 60-80 hours a week. Baseline Function- Other Limited with working tolerance . Currently not working. Walked up to 15-20 mile a day 4 yrs ago. Current Functional Impairments (Reported) Functional Limitations- Mobility/Gait Limited to 1-2 miles Functional Limitations- Work/School Currently limiting work 2 to 20 hrs/week due to knee pain. Functional Limitations- Other Stair ambulation sometimes one stepping going up, always one stepping descending (leading with left). Personal Factors Other Personal Factors That May Effect Dizziness Therapy/Recovery Feels like passing out when coughing Depression PT-OP-C Subjective Start: 03/24/19 18:29 Freq: Status: Active Protocol: Document 05/15/19 10:29 LRN (Rec: 05/15/19 11:17 LRN [id number]) OP-PT Subjective Patient Comments Patient Comments K-tape worked good. States his knees have felt good for the past couple days because he hasn't been doing much. This morning 0/10 knee pain bilaterally to start. Has severe knee pain when on his feet too much or when crawling around. E-stim helped the L knee last session. Patient Reported Progress Same PT-OP-D Balance Start: 03/24/19 18:29 Freq: Status: Active Protocol: Document 05/15/19 10:29 LRN (Rec: 05/15/19 12:39 LRN [id number]) Morales Balance Assessment Evaluation Sitting to Standing Ability Independent w/out Hands Unsupported Stance Safely- 2 minutes Sitting Unsupported, Feet on Floor Safely- 2 minutes Standing to Sitting Ability Safely, Minimal Hand Use Transfer Ability Safely, Minimal Hand Use Unsupported Stance- Eyes Closed Safely, 10 seconds Unsupported Stance- Eyes Open Independent, 1 minute Reaching Forward Standing Confidently, 10 inches Pick- Up Object From Floor Independent/Safe Look Behind Shoulder - Standing Shifts Weight Well Turning 360 Degrees Turns slowly, but safely Unsupported Stance, Alternating Feet on (I)- 8 Steps in 20 secs Stair Unsupported Tandem Stance Balance Lost- Step/Stand Unilateral Leg Stance Lifts Leg/Holds 5-10 secs Total Score Morales Total Score (out of 56 points) 49 Morales Impairment Rating 1 to 19% Impaired (Score 45-55 ) PT-OP-H Neuro Start: 03/24/19 18:29 Freq: Status: Active Protocol: Document 03/29/19 10:33 LRN (Rec: 03/29/19 11:22 LRN [id number]) Vital Signs Pulse R index finger Pulse at Rest (bpm) 47 Pulse Assessment Method Pulse Ox/Monitor Blood Pressure Sitting Blood Pressure (90/60-120/80 mmHg) 120/84 H Blood Pressure Source Manual Cuff Comments Vital Signs Comments S/P therapy, Supine: HR 45, BP 140/82 PT-OP-J Posture/Palpation/Skin Start: 03/24/19 18:29 Freq: Status: Active Protocol: Document 03/27/19 11:18 LRN (Rec: 03/28/19 16:23 LRN [id number]) Posture Evaluation Comments Posture Comments In standing: Pt stands more on his R LE ~60%. He has mild varus on the right, increased lumbar lordosis and a forward head. Palpation Assessment Location L & R knee Palpation Location Medial joint line Palpation Findings Tenderness L knee Palpation Location L patella superiorly, inferiorly and inferolateral Palpation Findings Tenderness PT-OP-K Range of Motion Start: 03/24/19 18:29 Freq: Status: Active Protocol: Document 03/27/19 11:18 LRN (Rec: 03/28/19 16:23 LRN [id number]) Hip Goniometric Range of Motion Hip Right Passive Straight Leg Raise 80 Left Passive Straight Leg Raise 70 Knee Goniometric Range of Motion Knee Right Patient Position Supine Flexion Active (degrees) 140 Extension Active (degrees) 5 Left Patient Position Supine Flexion Active (degrees) 140 Extension Active (degrees) 12 Knee ROM Limitations Knee ROM Limitations Pain Comments Extension Active measurement: is lacking extension in degrees PT-OP-L Special Tests Start: 03/24/19 18:29 Freq: Status: Active Protocol: Document 03/27/19 11:18 LRN (Rec: 03/28/19 16:23 LRN [id number]) Special Tests Knee Special Tests Valgus- 25 Degrees Test Results + left Comments Left: Medial knee Pain with testing. Right: Lateral knee Pain with testing. Anterior Draw Test Results Bilateral: Increased forward translation with end stop PT-OP-M Strength Start: 03/24/19 18:29 Freq: Status: Active Protocol: Document 03/27/19 11:18 LRN (Rec: 03/28/19 16:23 LRN [id number]) Knee Strength Knee Manual Muscle Testing Right Reason Not Measured WFL Left Reason Not Measured WFL PT-OP-Q Treatments Start: 03/24/19 18:29 Freq: Status: Active Protocol: Document 05/15/19 10:29 LRN (Rec: 05/15/19 11:17 LRN [id number]) Cardio Equipment Recumbent Elliptical (BiodBlaBlaCar) Duration (Minutes) 8 Resistance 6 Seat Position 8 Gym Equipment Shuttle Recovery Bilateral Squats Details Jonathan Squats w/Ktape on L knee Resistance 50# Reps/Time 10 x 3 Therapeutic Exercises Supine Exercises SLR Supine Exercise Name Foot @ 12 O'Clock Side bilateral Resistance 10# Reps/Minutes 10x slowly Standing Exercises Heel lifts Standing Exercise Name Feet 1) Inverted, 2) neutral, 3) Everted Reps/Minutes 10 x each HC stretch Standing Exercise Name HC stretch f/b active ankle DF x 10 Equipment Used LUX Reps/Minutes 60 x 1, f/b ankle DF x 10 Manual Therapy Treatment Taping Knees Body Location Medial [place] Left Patella Treatment Focus Alignment correction Type of Tape Kinesio Tape Skin Inspection Pt agreeable to taping on leg without shaving. Comments Pt instructed to remove before next appointment and to remove with signs of allergic reaction, with discussion of possible symptoms. Neuro Re-Education Treatment Balance Activities MORALES balance activities Details Morales balance activities Comments Morales Assessment - 49/56: Pt safe for ambulation, no assist device/less likely to fall. PT-OP-R Modalities Start: 03/24/19 18:29 Freq: Status: Active Protocol: Document 05/15/19 10:29 LRN (Rec: 05/15/19 11:17 LRN [id number]) Electric Stimulation Electric Stimulation Interferential Current (IFC) Body Location L knee Duration (Minutes) 10 Intensity 16 Target/Sweep Sweep Patient Position Hooklying Combined With Heat/Cold Cold Pack Comments R knee not bothering him today , Sharp pains in L knee Hot Pack/Cold Pack Treatment Cold Pack Location bilateral knees Patient Position Supine Treatment Duration (minutes) 10 Patient Tolerance Good Comments During E-Stim: bilateral LE elevated on bolster PT-OP-S Aquatic Treatment Start: 05/04/19 08:59 Freq: Status: Active Protocol: Document 05/03/19 11:00 SAK (Rec: 05/09/19 14:05 SAK [id number]) Aquatics Treatment Pool Entry/Exit Pool Entry/Exit Method Stairs Assistance Standby Assistance Water Walking [place] March Water Level Chest Level Level of Assistance Verbal Cues Marching Water Level Chest Level Level of Assistance Verbal Cues Sideways Water Level Chest Level Level of Assistance Verbal Cues backward Water Level Chest Level Level of Assistance Verbal Cues forward Water Level Chest Level Level of Assistance Verbal Cues Lower Extremity Exercises hip ab/ad Body Position Standing Water Level Chest Level Reps/Duration 10x hip flex/ext Body Position Standing Water Level Chest Level Reps/Duration 10x knee flex/ext Body Position Standing Reps/Duration 10x squat Body Position Standing Water Level Chest Level Reps/Duration 10x heel raise, toe raise Body Position Standing Water Level Chest Level Reps/Duration 10x Lower Extremity Stretches quad Body Position Standing Water Level Chest Level Equipment Small Noodle Reps/Duration 2x30 HS, ITB, DD Body Position Standing Water Level Chest Level Equipment Small Noodle Reps/Duration 2x30 HC Body Position Standing Reps/Duration 2x, wall [place] Activities [place] Activities Bicycle,Cross Country,Running Equipment flotation belt Duration 10 Comments deep water hang, rest 1'x2 PT-OP-T Assessment and Plan Start: 03/24/19 18:29 Freq: Status: Active Protocol: Document 05/15/19 10:29 LRN (Rec: 05/15/19 11:17 LRN [id number]) Physical Therapy Assessment Goals Two Impairment Bilateral knee pain (L rated 9 /10, R rated 7/10) Detention Goal (LTG) Decrease knee pain with pt able to tolerate increased tolerance to walking (>1-2 miles) and improved tolerance to working. LTG Duration 05/19/19 (04/27/19: Improving, pain is less bilaterally) One Impairment Lacks appropriate HEP Farm Adviser Goal (LTG) Pt will be independent with a self care HEP. LTG Duration 05/19/19 (04/27/19: Progressing ) Assessment Summary Assessment K-tape decreases pain with CCK strengthening. E-stim was helpful post treatment with pain management. Inclement weather is limiting pt's ability to walk outdoors. Per MORALES, pt is safe for ambulation without an assist device, but pt uses one because of intermittent buckling of the knees. Physical Therapy Plan Frequency and Duration Frequency of Treatment 2x/Week Plan of Care Start Date 03/27/19 Plan of Care End Date 05/19/19 Next Visit Focus/Plan Next Note Type Progress Note Next Visit Plan Assess for PN. Might try TM for gait if pt BP is within exercise range. Continue PT with combination land and aquatic-based therapy. Plan on DC to HEP when pt goes to see MD for follow up next week .
--- NOTE | 2019-06-27 17:14 | PT.OTN ---
Current Diagnoses Bilateral primary osteoarthritis of knee (06/27/19) Pain in right knee (06/27/19) Pain in left knee (06/27/19) Other reduced mobility (06/27/19) Physical Therapy Treatment Note PT-OP-A Visit Information Start: 03/24/19 18:29 Freq: Status: Active Protocol: Document 06/27/19 10:40 LRN (Rec: 06/27/19 17:06 LRN [id number]) Out-Patient Physical Therapy Visit Information Visit Information Visit Type Treatment Note Visit Note BP 158/90, HR 47 after walking into ex room. After recumbent stepper: BP: 158/88 ; HR 58 Visit Start Time 10:40 Visit Stop Time 11:32 Total Visit Minutes 52 Visit Number 9 Number of PAINT TINTER Visits 0 Evaluation Information Evaluation Date 03/27/19 Precautions Precautions Uncontrolled HBP Dizziness Passing out feeling when coughing PT-OP-B Current Condition Start: 03/24/19 18:29 Freq: Status: Active Protocol: Document 03/27/19 11:18 LRN (Rec: 03/27/19 12:43 LRN [id number]) Current Condition History of Current Condition Onset Date R knee 2003, L knee 2001 Current Complaints Bilateral sharp pains in the knee. L knee has given out going down stairs History of Current Condition Has always walked with a limp and it has been getting bad lately. 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 Must have PT before receiving an MRI. Last year was not able to receive PT because the blood pressure was too high. Blood pressure is now below 160/100, but the heart rate drops sometimes too low (35 bpm). Nest appt with manager ship is 04/14/19, and has an appt with a hormone/ gland specialist on 04/03/19. L knee is worse than the right . L knee pain can be sharp from the infrapatellar to the suprapatellar region. Feels the right side is bad because it compensates for the left. He has been off his feet so today his knees are not bad. Pain is with movement and with twisting. 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 Prior Treatments and Tests R knee arthroscopic surgery to clean it. Treatment Goals Patient/Caregiver Goals Pt goal is to not hurt anymore . His goal is to complete 4 weeks of therapy and get an MRI Prior Functional Status Baseline Function- ADL's Independent Baseline Function- Mobility Independent Baseline Function- Gait 2009 used cane because of L knee pain. Baseline Function- Work/School Worked 60-80 hours a week. Baseline Function- Other Limited with working tolerance . Currently not working. Walked up to 15-20 mile a day 4 yrs ago. Current Functional Impairments (Reported) Functional Limitations- Mobility/Gait Limited to 1-2 miles Functional Limitations- Work/School Currently limiting work 2 to 20 hrs/week due to knee pain. Functional Limitations- Other Stair ambulation sometimes one stepping going up, always one stepping descending (leading with left). Personal Factors Other Personal Factors That May Effect Dizziness Therapy/Recovery Feels like passing out when coughing Depression PT-OP-C Subjective Start: 03/24/19 18:29 Freq: Status: Active Protocol: Document 06/27/19 10:40 LRN (Rec: 06/27/19 17:06 LRN [id number]) OP-PT Subjective Patient Comments Patient Comments States overall he initially had less knee pain, but his pain is worse now with the changing of the weather. He is able to walk 3-4 miles, but his work hours are about the same. He states he sets his own hours. Patient Reported Progress Same Patient Questionnaires ABC- Activity Specific Balance Confidence Scale ABC Score 66 ABC Functional Impairment 20 to <40% Impaired (Score 61- 80) OP-PT Pain Assessment Pain Assessment Grid Paper Pain Assessment Grid Completed Yes Location R knee Pain Location Details Anterior knee Intensity 6 Scale Used Numeric (1 - 10) L knee Pain Location Details In knee joint Intensity 6 Scale Used Numeric (1 - 10) PT-OP-D Balance Start: 03/24/19 18:29 Freq: Status: Active Protocol: Document 05/15/19 10:29 LRN (Rec: 05/15/19 12:39 LRN [id number]) Rodríguez Balance Assessment Evaluation Sitting to Standing Ability Independent w/out Hands Unsupported Stance Safely- 2 minutes Sitting Unsupported, Feet on Floor Safely- 2 minutes Standing to Sitting Ability Safely, Minimal Hand Use Transfer Ability Safely, Minimal Hand Use Unsupported Stance- Eyes Closed Safely, 10 seconds Unsupported Stance- Eyes Open Independent, 1 minute Reaching Forward Standing Confidently, 10 inches Pick- Up Object From Floor Independent/Safe Look Behind Shoulder - Standing Shifts Weight Well Turning 360 Degrees Turns slowly, but safely Unsupported Stance, Alternating Feet on (I)- 8 Steps in 20 secs Stair Unsupported Tandem Stance Balance Lost- Step/Stand Unilateral Leg Stance Lifts Leg/Holds 5-10 secs Total Score Rodríguez Total Score (out of 56 points) 49 Rodríguez Impairment Rating 1 to 19% Impaired (Score 45-55 ) PT-OP-H Neuro Start: 03/24/19 18:29 Freq: Status: Active Protocol: Document 03/29/19 10:33 LRN (Rec: 03/29/19 11:22 LRN [id number]) Vital Signs Pulse R index finger Pulse at Rest (bpm) 47 Pulse Assessment Method Pulse Ox/Monitor Blood Pressure Sitting Blood Pressure (90/60-120/80 mmHg) 120/84 H Blood Pressure Source Manual Cuff Comments Vital Signs Comments S/P therapy, Supine: HR 45, BP 140/82 PT-OP-J Posture/Palpation/Skin Start: 03/24/19 18:29 Freq: Status: Active Protocol: Document 03/27/19 11:18 LRN (Rec: 03/28/19 16:23 LRN [id number]) Posture Evaluation Comments Posture Comments In standing: Pt stands more on his R LE ~60%. He has mild varus on the right, increased lumbar lordosis and a forward head. Palpation Assessment Location L & R knee Palpation Location Medial joint line Palpation Findings Tenderness L knee Palpation Location L patella superiorly, inferiorly and inferolateral Palpation Findings Tenderness PT-OP-K Range of Motion Start: 03/24/19 18:29 Freq: Status: Active Protocol: Document 03/27/19 11:18 LRN (Rec: 03/28/19 16:23 LRN [id number]) Hip Goniometric Range of Motion Hip Right Passive Straight Leg Raise 80 Left Passive Straight Leg Raise 70 Knee Goniometric Range of Motion Knee Right Patient Position Supine Flexion Active (degrees) 140 Extension Active (degrees) 5 Left Patient Position Supine Flexion Active (degrees) 140 Extension Active (degrees) 12 Knee ROM Limitations Knee ROM Limitations Pain Comments Extension Active measurement: is lacking extension in degrees PT-OP-L Special Tests Start: 03/24/19 18:29 Freq: Status: Active Protocol: Document 03/27/19 11:18 LRN (Rec: 03/28/19 16:23 LRN [id number]) Special Tests Knee Special Tests Valgus- 25 Degrees Test Results + left Comments Left: Medial knee Pain with testing. Right: Lateral knee Pain with testing. Anterior Draw Test Results Bilateral: Increased forward translation with end stop PT-OP-M Strength Start: 03/24/19 18:29 Freq: Status: Active Protocol: Document 03/27/19 11:18 LRN (Rec: 03/28/19 16:23 LRN [id number]) Knee Strength Knee Manual Muscle Testing Right Reason Not Measured WFL Left Reason Not Measured WFL PT-OP-Q Treatments Start: 03/24/19 18:29 Freq: Status: Active Protocol: Document 06/27/19 10:40 LRN (Rec: 06/27/19 17:13 LRN [id number]) Cardio Equipment Bicycle (Upright) Duration (Minutes) 8 Resistance 4 Therapeutic Exercises Supine Exercises Knee flexion stretch Supine Exercise Name KTC for knee flexion stretch Side bilateral Comments Extra time taken for review of active stretch after prolonged stretch Iliopsoas stretch Supine Exercise Name Iliopsoas stretch Side bilateral Hamstring/LE neural stretch Reps/Minutes 4' 1 Supine Exercise Name qaud set with progressing knee extension Comments Extra time for review of stretch f/b active stretch SLR 1 O'Clock Supine Exercise Name SLR 1 O'Clock Side bilateral Reps/Minutes 10x slowly SLR Supine Exercise Name Foot @ 12 O'Clock Side bilateral Reps/Minutes 10x slowly SLR 12 O'clock Supine Exercise Name SLR foot 10 O'Clock Side bilateral Reps/Minutes 10x slowly Manual Therapy Treatment Taping Knees Body Location Medial [place] Left Patella Treatment Focus Alignment correction Type of Tape Kinesio Tape Skin Inspection Pt agreeable to taping on leg without shaving. Comments Pt instructed to remove before next appointment and to remove with signs of allergic reaction, with discussion of possible symptoms. Self-Care/Home Management Treatment Education Patient Education Home Exercise Program Other Education Educated pt in removing of K- tape in 5 days or sooner. Activities Self-Care/Home Management Activities Issued an reviewed HEP of: Stretch for knee ext/flex, hip ext and hamstring; Medial quad strengthening. PT-OP-R Modalities Start: 03/24/19 18:29 Freq: Status: Active Protocol: Document 05/15/19 10:29 LRN (Rec: 05/15/19 11:17 LRN [id number]) Electric Stimulation Electric Stimulation Interferential Current (IFC) Body Location L knee Duration (Minutes) 10 Intensity 16 Target/Sweep Sweep Patient Position Hooklying Combined With Heat/Cold Cold Pack Comments R knee not bothering him today , Sharp pains in L knee Hot Pack/Cold Pack Treatment Cold Pack Location bilateral knees Patient Position Supine Treatment Duration (minutes) 10 Patient Tolerance Good Comments During E-Stim: bilateral LE elevated on bolster PT-OP-S Aquatic Treatment Start: 05/04/19 08:59 Freq: Status: Active Protocol: Document 05/03/19 11:00 SAK (Rec: 05/09/19 14:05 SAK [id number]) Aquatics Treatment Pool Entry/Exit Pool Entry/Exit Method Stairs Assistance Standby Assistance Water Walking [place] October Water Level Chest Level Level of Assistance Verbal Cues Marching Water Level Chest Level Level of Assistance Verbal Cues Sideways Water Level Chest Level Level of Assistance Verbal Cues backward Water Level Chest Level Level of Assistance Verbal Cues forward Water Level Chest Level Level of Assistance Verbal Cues Lower Extremity Exercises hip ab/ad Body Position Standing Water Level Chest Level Reps/Duration 10x hip flex/ext Body Position Standing Water Level Chest Level Reps/Duration 10x knee flex/ext Body Position Standing Reps/Duration 10x squat Body Position Standing Water Level Chest Level Reps/Duration 10x heel raise, toe raise Body Position Standing Water Level Chest Level Reps/Duration 10x Lower Extremity Stretches quad Body Position Standing Water Level Chest Level Equipment Small Noodle Reps/Duration 2x30 HS, ITB, DD Body Position Standing Water Level Chest Level Equipment Small Noodle Reps/Duration 2x30 HC Body Position Standing Reps/Duration 2x, wall [employer] Activities [employer] Activities Bicycle,Cross Country,Running Equipment flotation belt Duration 10 Comments deep water hang, rest 1'x2 PT-OP-T Assessment and Plan Start: 03/24/19 18:29 Freq: Status: Active Protocol: Document 06/27/19 10:40 LRN (Rec: 06/27/19 17:06 LRN [id number]) Physical Therapy Assessment Goals Two Impairment Bilateral knee pain (L rated 9 /10, R rated 7/10) Alf Goal (LTG) Decrease knee pain with pt able to tolerate increased tolerance to walking (>1-2 miles) and improved tolerance to working. LTG Duration 05/19/19 (06/27/19: Goal partially met. Walking 3-4 miles, same work eduard) One Impairment Lacks appropriate HEP Alf Goal (LTG) Pt will be independent with a self care HEP. LTG Duration 05/19/19 (06/27/19: Goal met) Assessment Summary Assessment Pt has made minimal progress with pain reduction. He does get some pain relief with taping for L knee, lateral tracking patella. He is able to walk more, but his tolerance to work appears the same. His blood pressure has been better allowing him to participate with exercise, but remains borderline high at 160/98. The pt has participated in aquatic therapy and could do exercises in the pool, and he has been issued a HEP of knee ROM and strengthening exercises that do not appear to exacerbate his knee pain. The pt is agreeable to DC from PT with follow up in [place] office for consult on previously discussed surgical interventions. Physical Therapy Plan Discharge Physical Therapy Discharge Reasons Plateau in Progress Discharge Comments Pt has completed his therapy program and is agreeable to discharge today due to his plans to return to [place] for follow up, and discussion of treatment options. Thank you for your referral.
--- NOTE | 2019-06-27 17:32 | PT.OPPN ---
Current Diagnoses Bilateral primary osteoarthritis of knee (06/27/19) Pain in right knee (06/27/19) Pain in left knee (06/27/19) Other reduced mobility (06/27/19) Physical Therapy Progress Note PT-OP-A Visit Information Start: 03/24/19 18:29 Freq: Status: Active Protocol: Document 06/27/19 10:40 LRN (Rec: 06/27/19 17:06 LRN [id number]) Out-Patient Physical Therapy Visit Information Visit Information Visit Type Progress Note Visit Note BP 158/90, HR 47 after walking into ex room. After recumbent stepper: BP: 158/88 ; HR 58 Visit Start Time 10:40 Visit Stop Time 11:32 Total Visit Minutes 52 Visit Number 9 Number of GANG RIDER Visits 0 Evaluation Information Evaluation Date 03/27/19 Precautions Precautions Uncontrolled HBP Dizziness Passing out feeling when coughing PT-OP-B Current Condition Start: 03/24/19 18:29 Freq: Status: Active Protocol: Document 03/27/19 11:18 LRN (Rec: 03/27/19 12:43 LRN [id number]) Current Condition History of Current Condition Onset Date R knee 2003, L knee 2001 Current Complaints Bilateral sharp pains in the knee. L knee has given out going down stairs History of Current Condition Has always walked with a limp and it has been getting bad lately. 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 Must have PT before receiving an MRI. Last year was not able to receive PT because the blood pressure was too high. Blood pressure is now below 160/100, but the heart rate drops sometimes too low (35 bpm). Nest appt with poultry tender is 04/14/19, and has an appt with a hormone/ gland specialist on 04/03/19. L knee is worse than the right . L knee pain can be sharp from the infrapatellar to the suprapatellar region. Feels the right side is bad because it compensates for the left. He has been off his feet so today his knees are not bad. Pain is with movement and with twisting. 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 Prior Treatments and Tests R knee arthroscopic surgery to clean it. Treatment Goals Patient/Caregiver Goals Pt goal is to not hurt anymore . His goal is to complete 4 weeks of therapy and get an MRI Prior Functional Status Baseline Function- ADL's Independent Baseline Function- Mobility Independent Baseline Function- Gait 2009 used cane because of L knee pain. Baseline Function- Work/School Worked 60-80 hours a week. Baseline Function- Other Limited with working tolerance . Currently not working. Walked up to 15-20 mile a day 4 yrs ago. Current Functional Impairments (Reported) Functional Limitations- Mobility/Gait Limited to 1-2 miles Functional Limitations- Work/School Currently limiting work 2 to 20 hrs/week due to knee pain. Functional Limitations- Other Stair ambulation sometimes one stepping going up, always one stepping descending (leading with left). Personal Factors Other Personal Factors That May Effect Dizziness Therapy/Recovery Feels like passing out when coughing Depression PT-OP-C Subjective Start: 03/24/19 18:29 Freq: Status: Active Protocol: Document 06/27/19 10:40 LRN (Rec: 06/27/19 17:06 LRN [id number]) OP-PT Subjective Patient Comments Patient Comments States overall he initially had less knee pain, but his pain is worse now with the changing of the weather. He is able to walk 3-4 miles, but his work hours are about the same. He states he sets his own hours. Patient Reported Progress Same Patient Questionnaires ABC- Activity Specific Balance Confidence Scale ABC Score 66 ABC Functional Impairment 20 to <40% Impaired (Score 61- 80) OP-PT Pain Assessment Pain Assessment Grid Paper Pain Assessment Grid Completed Yes Location R knee Pain Location Details Anterior knee Intensity 6 Scale Used Numeric (1 - 10) L knee Pain Location Details In knee joint Intensity 6 Scale Used Numeric (1 - 10) PT-OP-D Balance Start: 03/24/19 18:29 Freq: Status: Active Protocol: Document 05/15/19 10:29 LRN (Rec: 05/15/19 12:39 LRN [id number]) Rodríguez Balance Assessment Evaluation Sitting to Standing Ability Independent w/out Hands Unsupported Stance Safely- 2 minutes Sitting Unsupported, Feet on Floor Safely- 2 minutes Standing to Sitting Ability Safely, Minimal Hand Use Transfer Ability Safely, Minimal Hand Use Unsupported Stance- Eyes Closed Safely, 10 seconds Unsupported Stance- Eyes Open Independent, 1 minute Reaching Forward Standing Confidently, 10 inches Pick- Up Object From Floor Independent/Safe Look Behind Shoulder - Standing Shifts Weight Well Turning 360 Degrees Turns slowly, but safely Unsupported Stance, Alternating Feet on (I)- 8 Steps in 20 secs Stair Unsupported Tandem Stance Balance Lost- Step/Stand Unilateral Leg Stance Lifts Leg/Holds 5-10 secs Total Score Rodríguez Total Score (out of 56 points) 49 Rodríguez Impairment Rating 1 to 19% Impaired (Score 45-55 ) PT-OP-H Neuro Start: 03/24/19 18:29 Freq: Status: Active Protocol: Document 03/29/19 10:33 LRN (Rec: 03/29/19 11:22 LRN [id number]) Vital Signs Pulse R index finger Pulse at Rest (bpm) 47 Pulse Assessment Method Pulse Ox/Monitor Blood Pressure Sitting Blood Pressure (90/60-120/80 mmHg) 120/84 H Blood Pressure Source Manual Cuff Comments Vital Signs Comments S/P therapy, Supine: HR 45, BP 140/82 PT-OP-J Posture/Palpation/Skin Start: 03/24/19 18:29 Freq: Status: Active Protocol: Document 03/27/19 11:18 LRN (Rec: 03/28/19 16:23 LRN [id number]) Posture Evaluation Comments Posture Comments In standing: Pt stands more on his R LE ~60%. He has mild varus on the right, increased lumbar lordosis and a forward head. Palpation Assessment Location L & R knee Palpation Location Medial joint line Palpation Findings Tenderness L knee Palpation Location L patella superiorly, inferiorly and inferolateral Palpation Findings Tenderness PT-OP-K Range of Motion Start: 03/24/19 18:29 Freq: Status: Active Protocol: Document 03/27/19 11:18 LRN (Rec: 03/28/19 16:23 LRN [id number]) Hip Goniometric Range of Motion Hip Measured in Degrees Right Passive Straight Leg Raise 80 Left Passive Straight Leg Raise 70 Knee Goniometric Range of Motion Knee Measured in Degrees Right Patient Position Supine Flexion Active (degrees) 140 Extension Active (degrees) 5 Left Patient Position Supine Flexion Active (degrees) 140 Extension Active (degrees) 12 Knee ROM Limitations Knee ROM Limitations Pain Comments Extension Active measurement: is lacking extension in degrees PT-OP-L Special Tests Start: 03/24/19 18:29 Freq: Status: Active Protocol: Document 03/27/19 11:18 LRN (Rec: 03/28/19 16:23 LRN [id number]) Special Tests Knee Special Tests Valgus- 25 Degrees Test Results + left Comments Left: Medial knee Pain with testing. Right: Lateral knee Pain with testing. Anterior Draw Test Results Bilateral: Increased forward translation with end stop PT-OP-M Strength Start: 03/24/19 18:29 Freq: Status: Active Protocol: Document 03/27/19 11:18 LRN (Rec: 03/28/19 16:23 LRN [id number]) Knee Strength Knee Manual Muscle Testing Right Reason Not Measured WFL Left Reason Not Measured WFL PT-OP-T Assessment and Plan Start: 03/24/19 18:29 Freq: Status: Active Protocol: Document 06/27/19 10:40 LRN (Rec: 06/27/19 17:06 LRN [id number]) Physical Therapy Assessment Rehab Potential Rehabilitation Potential Poor Evaluation Complexity Number of Personal Factors/Comorbidities 3 or More Number of Body Systems Impaired 4 or More Clinical Presentation at Evaluation Evolving Impairments Impairments Activity Tolerance,Gait,Pain, Posture,ROM,Strength Other Impairments Uncontrolled HBP Goals Two Impairment Bilateral knee pain (L rated 9 /10, R rated 7/10) Regional Sales Leader Goal (LTG) Decrease knee pain with pt able to tolerate increased tolerance to walking (>1-2 miles) and improved tolerance to working. LTG Duration 05/19/19 (06/27/19: Goal partially met. Walking 3-4 miles, same work eduard) One Impairment Lacks appropriate HEP Regional Sales Leader Goal (LTG) Pt will be independent with a self care HEP. LTG Duration 05/19/19 (06/27/19: Goal met) Assessment Summary Assessment Pt has made minimal progress with pain reduction. He does get some pain relief with taping for L knee, lateral tracking patella. He is able to walk more, but his tolerance to work appears the same. His blood pressure has been better allowing him to participate with exercise, but remains borderline high at 160/98. The pt has participated in aquatic therapy and could do exercises in the pool, and he has been issued a HEP of knee ROM and strengthening exercises that do not appear to exacerbate his knee pain. The pt is agreeable to DC from PT with follow up in [place] office for consult on previously discussed surgical interventions. Pt required PT visit with Plan of Care for today only for assessment and discharge. Physical Therapy Plan Frequency and Duration Frequency of Treatment 1 visit Duration of Treatment 1 visit Plan of Care Start Date 06/27/19 Plan of Care End Date 06/27/19 Therapeutic Interventions Therapeutic Interventions Home Exercise Program,Manual Therapy,Patient/Caregiver Education,Self-Care/Home Management,Therapeutic Exercises Discharge Physical Therapy Discharge Reasons Plateau in Progress Discharge Comments Pt has completed his therapy program and is agreeable to discharge today due to his plans to return to [place] for follow up, and discussion of treatment options. Thank you for your referral.
--- NOTE | 2019-06-27 17:32 | PT.OPPOC ---
Current Diagnoses Bilateral primary osteoarthritis of knee (06/27/19) Pain in right knee (06/27/19) Pain in left knee (06/27/19) Other reduced mobility (06/27/19) Visit Care Team Role Provider Type Lara Dickson MD Primary Care Provider Physician Specialty: Family Practice Address: [address] [place] [address], [facility] [place], [address] Email: [email or web address] Jaylen Nunes PA-C Attending Provider Non-Staff Specialty: Medical Address: [address] [place] [address], [address], [place], [address] Email: Plan Of Care PT-OP-T Assessment and Plan Start: 03/24/19 18:29 Freq: Status: Active Protocol: Document 06/27/19 10:40 LRN (Rec: 06/27/19 17:06 LRN [id number]) Physical Therapy Assessment Rehab Potential Rehabilitation Potential Poor Evaluation Complexity Number of Personal Factors/Comorbidities 3 or More Number of Body Systems Impaired 4 or More Clinical Presentation at Evaluation Evolving Impairments Impairments Activity Tolerance,Gait,Pain, Posture,ROM,Strength Other Impairments Uncontrolled HBP Goals Two Impairment Bilateral knee pain (L rated 9 /10, R rated 7/10) Mcc Goal (LTG) Decrease knee pain with pt able to tolerate increased tolerance to walking (>1-2 miles) and improved tolerance to working. LTG Duration 05/19/19 (06/27/19: Goal partially met. Walking 3-4 miles, same work eduard) One Impairment Lacks appropriate HEP Mcc Goal (LTG) Pt will be independent with a self care HEP. LTG Duration 05/19/19 (06/27/19: Goal met) Assessment Summary Assessment Pt has made minimal progress with pain reduction. He does get some pain relief with taping for L knee, lateral tracking patella. He is able to walk more, but his tolerance to work appears the same. His blood pressure has been better allowing him to participate with exercise, but remains borderline high at 160/98. The pt has participated in aquatic therapy and could do exercises in the pool, and he has been issued a HEP of knee ROM and strengthening exercises that do not appear to exacerbate his knee pain. The pt is agreeable to DC from PT with follow up in MD office for consult on previously discussed surgical interventions. Pt required PT visit with Plan of Care for today only for assessment and discharge. Physical Therapy Plan Frequency and Duration Frequency of Treatment 1 visit Duration of Treatment 1 visit Plan of Care Start Date 06/27/19 Plan of Care End Date 06/27/19 Therapeutic Interventions Therapeutic Interventions Home Exercise Program,Manual Therapy,Patient/Caregiver Education,Self-Care/Home Management,Therapeutic Exercises Discharge Physical Therapy Discharge Reasons Plateau in Progress Discharge Comments Pt has completed his therapy program and is agreeable to discharge today due to his plans to return to [place] for follow up, and discussion of treatment options. Thank you for your referral. Plan of Care Dates Plan of Care Start Date 06/27/19 Plan of Care End Date 06/27/19
== END 2019-06-29 13:10 ==
LOC: PHYS 10:30
PROVIDERS: PCP Family Medicine; Visit Provider Physician Assistant Surgical
DX: M17.0 Bilateral primary osteoarthritis of knee (principal); M25.561 Pain in right knee; M25.562 Pain in left knee; Z74.09 Other reduced mobility
CPT/HCPCS: 97014; 97032; 97035; 97110; 97112; 97113; 97140; 97162; 97530; 97535; G0283

== ENCOUNTER → 2020-01-24 12:51 | Outpatient (CLI) | payer OTHER, MEDICAID, SELFPAY ==
[2019-03-29 10:33] VITALS: PULSE 47
[2020-01-24 14:30] LABS: Alanine Aminotransferase 30 IU/L (<50); Albumin 4.4 g/dL (3.5-5.0); Albumin Globulin Ratio 1.3 (1.0-2.8); Alkaline Phosphatase 60 U/L (38-126); Aspartate Aminotransferase 31 IU/L (17-59); BUN Creatinine Ratio 18.2 (6-22); Bilirubin Total 0.4 mg/dL (0.2-1.3); Blood Urea Nitrogen 16 mg/dL (9-20); Calcium 10.8 mg/dL (8.4-10.2); Carbon Dioxide 21 mmol/L (22-32); Chloride 106 mmol/L (98-107); Cholesterol 194 mg/dL (140-199); Estimated Glomerular Filt Rate > 60.0 mL/min (>60); Globulin 3.4 g/dL (1.7-4.1); Glucose 103 mg/dL (70-100); HDL Cholesterol 35 mg/dL (40-60); HEMOLYSIS < 15 (0-50); LDL Cholesterol Calculated 119 mg/dL (<100); Sodium 139 mmol/L (137-145); Total Protein 7.8 g/dL (6.3-8.2); Triglycerides 202 mg/dL (35-150)
[2020-01-24 16:42] LABS: Creatinine Urine Random 225.9 mg/dL
[2020-01-24 16:45] LABS: Microalbumi Creatinin Ratio Ur 9.7 ug/mg CR (<30); Microalbumin Urine Random 2.2 mg/dL (0-1.6)
== END ==
PROVIDERS: Family Provider Family Medicine; PCP Family Medicine; Referring Provider Family Medicine; Visit Provider Family Medicine
DX: I10 Essential (primary) hypertension (principal)
CPT/HCPCS: 36415; 80053; 80061; 82043; 82570

== ENCOUNTER → 2020-05-29 09:05 | Outpatient (CLI) | payer OTHER, MEDICAID, SELFPAY ==
[2019-03-29 10:33] VITALS: PULSE 47
--- NOTE | 2020-05-29 09:07 | DI.US.S_ITS ---
PROCEDURE: US ABDOMEN COMPLETE INDICATIONS: abdominal distension, diffuse abdominal pain with mild guard TECHNIQUE: Real-time scanning was performed of the abdominal and retroperitoneal organs, with image documentation. COMPARISON: [facility], US, US RENAL COMPLETE, 05/06/2018, 8:49. FINDINGS: Liver: The liver demonstrates normal size. The liver demonstrates generalized prominently increased echogenicity. This decreases ultrasound sensitivity for detection of hepatic masses. Gallbladder: No findings of gallstones or sludge are seen. The gallbladder wall is not thickened, measuring 3 mm or less. No specific pericholecystic fluid is seen. The sonographic Dior sign is negative. Biliary ducts: The biliary tree is not well seen. Pancreas: Visualized portions of the pancreas are sonographically normal. Spleen: Spleen is normal in size and homogeneous in echotexture. Kidneys: Kidneys are normal in size and echotexture. Right kidney measures 11.2 cm long; left kidney measures 12.5 cm long. No hydronephrosis or nephrolithiasis. No solid masses. A left-sided dromedary hump can be seen. Aorta: Visualized aorta is normal in caliber at less than 3 cm. Iliacs: Not well seen. IVC: Intrahepatic inferior vena cava is patent. Miscellaneous: No free abdominal fluid. This study is limited by body habitus. Bowel gas further limits this study. IMPRESSION: Normal-appearing gallbladder by ultrasound. The biliary system is not well seen. Prominent fatty liver infiltration. Dictated by: Cali Cannon M.D. on 05/29/2020 at 9:25 Approved by: Cali Cannon M.D. on 05/29/2020 at 9:27
== END ==
PROVIDERS: Family Provider Family Medicine; PCP Family Medicine; Referring Provider Family Medicine; Visit Provider Family Medicine
DX: R10.9 Unspecified abdominal pain (principal); R14.0 Abdominal distension (gaseous); K76.0 Fatty (change of) liver, not elsewhere classified
CPT/HCPCS: 76700

== ENCOUNTER → 2020-07-16 11:49 | Outpatient (CLI) | payer OTHER, MEDICAID, SELFPAY ==
[2019-03-29 10:33] VITALS: PULSE 47
--- NOTE | 2020-07-16 12:46 | DI.CT.S_ITS ---
PROCEDURE: CT ABDOMEN PELVIS W CON INDICATIONS: abdominal distension, diffuse abdominal pain with mild guard TECHNIQUE: After the administration of oral and intravenous contrast, 5 mm thick sections acquired from the diaphragms to the symphysis. 5 mm thick coronal and sagittal reformats were performed. For radiation dose reduction, the following was used: automated exposure control, adjustment of mA and/or kV according to patient size. COMPARISON: None. FINDINGS: Image quality: Excellent. ABDOMEN: Lung bases: Lung bases are clear. Heart size is normal. Solid organs: Liver is normal in size and enhancement. Gallbladder appears normal . Biliary system is non-dilated. Pancreas enhances normally. Spleen is normal in size and enhancement. No adrenal nodules. Kidneys are normal in size and enhancement, without hydronephrosis. Peritoneum and bowel: Stomach, small bowel, and colon loops are normal in caliber and wall thickness. No free fluid or air. Nodes and vessels: No retroperitoneal or mesenteric adenopathy. Aorta and inferior vena cava are normal in caliber. Miscellaneous: No ventral hernias. PELVIS: Genitourinary: Bladder wall thickness is normal. Miscellaneous: No inguinal hernias or adenopathy. Bones: No suspicious bony lesions. No vertebral body compression fractures. IMPRESSION: Normal for age, source of abdominal distension and generalized abdominal pain is not seen. There is no sign of underlying infection or neoplasm. Dictated by: Negro Peñaloza M.D. on 07/16/2020 at 15:07 Approved by: Negro Peñaloza M.D. on 07/16/2020 at 15:08
[2020-07-16 13:48] LABS: Alanine Aminotransferase 40 IU/L (<50); Albumin 4.2 g/dL (3.5-5.0); Albumin Globulin Ratio 1.2 (1.0-2.8); Alkaline Phosphatase 60 U/L (38-126); Aspartate Aminotransferase 38 IU/L (17-59); BUN Creatinine Ratio 21.4 (6-22); Bilirubin Total 0.5 mg/dL (0.2-1.3); Blood Urea Nitrogen 21 mg/dL (9-20); Calcium 9.8 mg/dL (8.4-10.2); Carbon Dioxide 25 mmol/L (22-32); Chloride 104 mmol/L (98-107); Estimated Glomerular Filt Rate > 60.0 mL/min (>60); Globulin 3.5 g/dL (1.7-4.1); Glucose 91 mg/dL (70-100); HEMOLYSIS < 15 (0-50); Lipase 180 U/L (23-300); Potassium 4.1 mmol/L (3.4-5.1); Sodium 134 mmol/L (137-145); Total Protein 7.7 g/dL (6.3-8.2)
[2020-07-17 13:09] LABS: Ionized Calcium 5.2 mg/dL (4.5-5.6)
== END ==
PROVIDERS: Family Provider Family Medicine; PCP Family Medicine; Referring Provider Family Medicine; Visit Provider Family Medicine
DX: R14.0 Abdominal distension (gaseous) (principal); R10.84 Generalized abdominal pain; E83.52 Hypercalcemia
CPT/HCPCS: 36415; 74177; 80053; 82330; 83690; Q9967

== ENCOUNTER → 2020-09-30 11:19 | Outpatient (CLI) | payer OTHER, MEDICAID, SELFPAY ==
[2019-03-29 10:33] VITALS: PULSE 47
[2020-09-30 13:00] LABS: COVID19 -Nasal RAPID Negative (Negative)
== END ==
PROVIDERS: PCP Family Medicine; Visit Provider Physician Assistant
DX: Z20.828 Contact with and (suspected) exposure to other viral communicable diseases (principal)
CPT/HCPCS: 87635

== ENCOUNTER 2020-10-02 12:25 | Day surgery (SDC) | payer OTHER, MEDICAID, SELFPAY ==
[2019-03-29 10:33] VITALS: PULSE 47
[2020-10-02] VITALS (7 sets, daily range): BP systolic 151–190; BP diastolic 97–107; PULSE 88–104; RESP 15–24; TEMP 36.2–36.8; O2SAT 93–99; BMI 88.6
--- NOTE | 2020-10-02 | PATH_ITS ---
[facility] Accession Number: [id number] . 01 Material submitted: . gastrointestinal site - GASTRIC BIOPSIES . 01 Clinical history: . [facility] [place] R/O H.PYLORI . 02 Diagnosis: Stomach, Biopsies: Antral and body-type mucosa with mild chronic gastritis. No evidence of Helicobacter on H/E stain. Negative for intestinal metaplasia. Negative for dysplasia and malignancy. V 10/07/2020 1108 Local . 02 Comment: An immunohistochemical stain will be performed to evaluate for Helicobacter and the results reported as an addendum. . 02 Electronically signed: . Heather Pandey MD, Pathologist NPI- [id number] . 01 Gross description: . The specimen is received in formalin, labeled gastric and consists of three christie-pink fragments of soft tissue, measuring 0.5 x 0.4 x 0.2 cm in aggregate. The specimen is entirely submitted in cassette A1. ([id number]) /[facility] 10/03/2020 1713 Local . 02 Pathologist provided ICD-10: R10.9 . 02 CPT . 771698, [id number] Performed at: 01 [facility] [address], [place], [place] [id number] MD Booker Carter MD Phone: [phone] Performed at: 02 [facility] [address] [place], [place] [id number] MD Heather Pandey MD Phone: [phone]
[2020-10-02] MEDS: SODIUM CHLORIDE 0.9% 1,000 ML 70 ML IV (12:40)
--- NOTE | 2020-10-02 13:30 | PM.HP.1 ---
History of Present Illness History of Present Illness Date Patient Seen: 10/02/20 Time Patient Seen: 13:25 Chief complaint: SDC Narrative: Patient is a 54-year-old male who presented upper endoscopy. He was evaluated on September 05, 2020 for abdominal pain despite PPI therapy. He has continued to have abdominal pain. He continues to have symptoms of heartburn. Patient History Medical History Bilateral knee pain (2002) COPD (chronic obstructive pulmonary disease) (2014) Depression Gastric ulcer (2002) Hypertension Rheumatic fever (1983) Right eye injury (1997) Surgical History Anesthesia Status post knee surgery (2003) Family & Social History Family History (Updated 03/23/18 @ 10:51 by Naheed Ferris) Brother Age: 69 Heart disease Hypertension High cholesterol Diabetes mellitus Mother Heart disease Hypertension Diabetes mellitus Brother No problems noted. Social History: household members spouse lives independently Yes caregiver/support person No Tobacco & Substance use: Tobacco type cigarettes Smoking Status Current every day smoker Smoking packs per day 1 alcohol intake frequency 0-2 drinks per day Substance Use Type does not use Meds Home Medications and Allergies Home Medications Medication Instructions Recorded Confirmed Type metoprolol tartrate 100 mg tablet See Rx Instructions .ROUTE 01/24/20 10/02/20 Rx .COMPLEX #120 tablet spironolactone 25 mg tablet 50 mg PO BID tab 01/24/20 10/02/20 History atorvastatin 20 mg tablet 20 mg PO BEDTIME #90 tab 01/30/20 10/02/20 Rx losartan 100 mg tablet 100 mg PO DAILY #60 tab 04/18/20 10/02/20 Rx omeprazole 20 mg capsule,delayed 20 mg PO BID #60 cap 05/01/20 10/02/20 Rx release tiotropium bromide 18 mcg capsule 1 cap INHALATION DAILY 05/01/20 10/02/20 History with inhalation device amlodipine 10 mg tablet See Rx Instructions .ROUTE 05/27/20 10/02/20 Rx .COMPLEX #90 tab albuterol sulfate 90 mcg/actuation See Rx Instructions .ROUTE 06/17/20 10/02/20 Rx aerosol inhaler .COMPLEX #8.5 gram Allergies Allergy/AdvReac Type Severity Reaction Status Date / Time No Known Drug Allergies Allergy Verified 10/02/20 12:27 Exam Vital Signs (past 8 hours): - 10/02/20 12:40 Temperature 97.2 F L Pulse Rate 90 Respiratory Rate 24 Blood Pressure 190/98 H Pulse Oximetry 99 Oxygen Delivery Method Room Air Const General: cooperative and comfortable Nutritional Appearance: obese Orientation: alert, awake and oriented x3 HENMT Head: normocephalic and atraumatic Resp Effort & Inspection: normal respiratory effort and able to speak in complete sentences Auscultation: clear to auscultation bilaterally Cardio Rate: regular rate Rhythm: regular rhythm Heart Sounds: S1 normal and S2 normal GI Inspection: distended and obesity Percussion: normal to percussion Auscultation: normal bowel sounds Extrem Right lower extremity: edema Left lower extremity: edema Assessment & Plan Assessment & Plan narrative: 1. Epigastric abdominal pain 2. Heartburn despite PPI therapy EGD today, further recommendations to follow
[2020-10-02] MEDS: fentaNYL 250 MCG/5 ML INJ IV (13:48)
[2020-10-02] MEDS: LIDOCAINE 4% SOLN 50 ML 20 ML TOP (13:48)
[2020-10-02] MEDS: MIDAZOLAM 5 MG/5 ML VIAL IV (13:49)
--- NOTE | 2020-10-02 13:51 | PM.OP.ENDO ---
Operative Date/Time/Diagnoses Date of procedure: 10/02/20 Time of procedure: 13:34 Procedure Notes Procedure in detail: Surgeon: Lauren Nobles DO Procedure: Esophagogastroduodenoscopy with biopsy Preoperative diagnosis: 1. Epigastric pain 2. Heartburn despite PPI therapy Postoperative diagnosis: 1. Small esophageal varices in the lower 3rd of the esophagus 2. LA-B esophagitis, not biopsied due to presence of varices 3. Retained Gastric contents -large amount of fluid in the stomach 4. Gastritis, biopsied 5. Normal-appearing duodenum Medications: Conscious sedation using 5 mg IV of Midazolam and 125 mcg IV of Fentanyl, 4% lidocaine gargle Preanesthesia Assessment An H and P was performed/updated and the Px?s ASA class is 3. The procedure was discussed in detail with the patient. The potential risks and complications including infection, bleeding, missed lesions, perforation, need for surgery in case of perforation, prolonged hospital stay, and were explained. A brief question and answer period was allotted and once all questions were answered, informed consent was obtained. The patient was brought back to the procedure room and placed on standard monitoring. The patient?s vital signs were monitored continuously throughout the entire procedure. Prior to starting, a timeout was performed to confirm the patient?s identity, allergies, medications, and procedure. Procedure in detail The patient was placed in left lateral decubitus position and a bite block was inserted. The tip of the upper endoscope was placed into the mouth and advanced without difficulty under direct visualization into the esophagus. Esophagus: Small esophageal varices lower 3rd of the esophagus LA-B esophagitis in the lower 3rd of the esophagus Stomach: Retained gastric contents, large amount of fluid in the stomach Gastritis in the antrum with erosions, biopsied to rule out H pylori Duodenum: Normal-appearing duodenum The patient tolerated the procedure well and will be brought back to the recovery area to be discharged once criteria are met. The total physician intraservice time was 10min. Complications There were no complications and estimated blood loss was minimal. Recommendations: Resume previous diet Continue outPx medications -including proton pump inhibitor twice daily Follow up pathology results Repeat EGD in 1 year Office follow up to be scheduled An emergency contact number was given to the patient for any complications related to the procedure
== END 2020-10-02 14:30 | disposition home or self-care (01) ==
PROVIDERS: PCP Family Medicine; Referring Provider Family Medicine; Visit Provider Student in an Organized Health Care Education/Training Program
PROC: 0DJ08ZZ Inspection of Upper Intestinal Tract, Via Natural or Artificial Opening Endoscopic (ICD-10-PCS; CPT 43235; principal; 2020-10-02 13:30)
DX: K29.50 Unspecified chronic gastritis without bleeding (principal); K21.00 Gastro-esophageal reflux disease with esophagitis, without bleeding; J44.9 Chronic obstructive pulmonary disease, unspecified; I10 Essential (primary) hypertension; I85.00 Esophageal varices without bleeding
CPT/HCPCS: 43239; J2250; J3010

== ENCOUNTER → 2020-11-14 12:19 | Outpatient (CLI) | payer OTHER, MEDICAID, SELFPAY ==
[2019-03-29 10:33] VITALS: PULSE 47
[2020-11-14 12:45] LABS: Add Manual Diff / Slide Review NO; Basophils Absolute Auto 100 /uL (0-100); Eosinophils Absolute Auto 200 /uL (0-450); Eosinophils Percent Auto 2.1 % (2-4); Hemoglobin 14.8 g/dL (13.5-17.5); Lymphocytes Absolute Auto 2300 /uL (1100-4500); Lymphocytes Percent Auto 25.9 % (25-40); Mean Corpuscular HGB Conc 34.6 % (30-36); Mean Corpuscular Volume 92.5 fL (80-100); Monocytes Absolute Auto 700 /uL (0-900); Neutrophils Absolute Auto 5700 /uL (1500-7000); Platelet Count 276 X10^3/uL (150-400); Red Blood Cell Count 4.64 X10^6/uL (4.5-5.9); Red Cell Distribution Width 13.6 % (11.6-14.8)
[2020-11-14 12:51] LABS: INR 1.1 (0.9-1.3); Prothrombin Time 11.9 SECONDS (10.1-12.7)
[2020-11-14 13:03] LABS: Alanine Aminotransferase 32 IU/L (<50); Albumin 4.4 g/dL (3.5-5.0); Albumin Globulin Ratio 1.3 (1.0-2.8); Alkaline Phosphatase 52 U/L (38-126); Aspartate Aminotransferase 29 IU/L (17-59); BUN Creatinine Ratio 21.1 (6-22); Bilirubin Total 0.5 mg/dL (0.2-1.3); Blood Urea Nitrogen 19 mg/dL (9-20); Calcium 10.2 mg/dL (8.4-10.2); Carbon Dioxide 23 mmol/L (22-32); Chloride 104 mmol/L (98-107); Estimated Glomerular Filt Rate > 60.0 mL/min (>60); Globulin 3.3 g/dL (1.7-4.1); Glucose 122 mg/dL (70-100); HEMOLYSIS < 15 (0-50); Potassium 3.9 mmol/L (3.4-5.1); Sodium 136 mmol/L (137-145); Total Protein 7.7 g/dL (6.3-8.2)
== END ==
PROVIDERS: PCP Family Medicine; Referring Provider Nurse Practitioner; Visit Provider Nurse Practitioner
DX: I86.4 Gastric varices (principal); R10.13 Epigastric pain
CPT/HCPCS: 36415; 80053; 85025; 85610

== ENCOUNTER → 2021-01-03 09:18 | Outpatient (CLI) | payer OTHER, MEDICAID, SELFPAY ==
[2019-03-29 10:33] VITALS: PULSE 47
[2021-01-03 10:50] LABS: Add Manual Diff / Slide Review NO; Basophils Absolute Auto 100 /uL (0-100); Eosinophils Absolute Auto 200 /uL (0-450); Eosinophils Percent Auto 2.7 % (2-4); Hematocrit 42.8 % (41-53); Hemoglobin 14.5 g/dL (13.5-17.5); Lymphocytes Absolute Auto 2400 /uL (1100-4500); Lymphocytes Percent Auto 31.1 % (25-40); Mean Corpuscular HGB Conc 33.9 % (30-36); Mean Corpuscular Hemoglobin 31.5 PG (26-34); Monocytes Absolute Auto 800 /uL (0-900); Monocytes Percent Auto 10.1 % (3-14); Neutrophils Absolute Auto 4300 /uL (1500-7000); Neutrophils Percent Auto 55.1 % (50-75); Platelet Count 315 X10^3/uL (150-400); Red Cell Distribution Width 14.3 % (11.6-14.8); White Blood Cell Count 7.7 X10^3/uL (4.5-11.0)
[2021-01-03 11:26] LABS: BUN Creatinine Ratio 26.6 (6-22); Blood Urea Nitrogen 21 mg/dL (9-20); Calcium 9.4 mg/dL (8.4-10.2); Carbon Dioxide 23 mmol/L (22-32); Chloride 105 mmol/L (98-107); Cholesterol 210 mg/dL (140-199); Estimated Glomerular Filt Rate > 60.0 mL/min (>60); Glucose 108 mg/dL (70-100); HDL Cholesterol 33 mg/dL (40-60); HEMOLYSIS < 15 (0-50); Potassium 4.3 mmol/L (3.4-5.1); Sodium 138 mmol/L (137-145); Triglycerides 405 mg/dL (35-150)
== END ==
PROVIDERS: PCP Family Medicine; Referring Provider Internal Medicine Cardiovascular Disease; Visit Provider Internal Medicine Cardiovascular Disease
DX: I15.2 Hypertension secondary to endocrine disorders (principal); E78.5 Hyperlipidemia, unspecified
CPT/HCPCS: 36415; 80048; 80061; 85025

== ENCOUNTER → 2021-12-26 10:04 | Outpatient (CLI) | payer OTHER, MEDICAID, SELFPAY ==
[2021-12-26 10:41] LABS: Add Manual Diff / Slide Review NO; Basophils Absolute Auto 100 /uL (0-100); Basophils Percent Auto 1.2 % (0-2); Eosinophils Absolute Auto 200 /uL (0-450); Eosinophils Percent Auto 2.1 % (2-4); Hematocrit 43.9 % (41-53); Hemoglobin 15.3 g/dL (13.5-17.5); Lymphocytes Absolute Auto 3000 /uL (1100-4500); Mean Corpuscular HGB Conc 34.8 % (30-36); Mean Corpuscular Hemoglobin 31.2 PG (26-34); Mean Corpuscular Volume 89.7 fL (80-100); Monocytes Absolute Auto 800 /uL (0-900); Monocytes Percent Auto 8.8 % (3-14); Neutrophils Absolute Auto 4800 /uL (1500-7000); Neutrophils Percent Auto 53.9 % (50-75); Platelet Count 283 X10^3/uL (150-400); Red Blood Cell Count 4.89 X10^6/uL (4.5-5.9); Red Cell Distribution Width 14.2 % (11.6-14.8); White Blood Cell Count 8.9 X10^3/uL (4.5-11.0)
[2021-12-26 11:01] LABS: Alanine Aminotransferase 50 IU/L (<50); Albumin 4.5 g/dL (3.5-5.0); Albumin Globulin Ratio 1.3 (1.0-2.8); Alkaline Phosphatase 68 U/L (38-126); Aspartate Aminotransferase 43 IU/L (17-59); BUN Creatinine Ratio 18.7 (6-22); Bilirubin Total 0.5 mg/dL (0.2-1.3); Blood Urea Nitrogen 20 mg/dL (9-20); Calcium 9.7 mg/dL (8.4-10.2); Carbon Dioxide 24 mmol/L (22-32); Chloride 105 mmol/L (98-107); Cholesterol 157 mg/dL (140-199); Estimated Glomerular Filt Rate > 60 mL/min (>60); Globulin 3.5 g/dL (1.7-4.1); Glucose 103 mg/dL (70-100); HDL Cholesterol 31 mg/dL (40-60); HEMOLYSIS < 15 (0-50); LDL Cholesterol Calculated 54 mg/dL (<100); Potassium 4.2 mmol/L (3.4-5.1); Sodium 138 mmol/L (137-145); Triglycerides 360 mg/dL (35-150)
[2021-12-26 11:25] LABS: Prostate Specific Antigen 1.63 ng/mL (0.10-4.00)
[2021-12-26 12:23] LABS: Creatinine Urine Random 74.2 mg/dL
[2021-12-26 12:28] LABS: Microalbumin Urine Random < 0.6 mg/dL (0-1.6)
== END ==
PROVIDERS: PCP Family Medicine; Referring Provider Family Medicine; Visit Provider Family Medicine
DX: F17.200 Nicotine dependence, unspecified, uncomplicated (principal); I10 Essential (primary) hypertension; J44.9 Chronic obstructive pulmonary disease, unspecified; Z12.5 Encounter for screening for malignant neoplasm of prostate
CPT/HCPCS: 36415; 80053; 80061; 82043; 82570; 84153; 85025

== ENCOUNTER → 2022-10-07 10:35 | Outpatient (CLI) | payer OTHER, MEDICAID, SELFPAY ==
[2022-10-07 11:14] LABS: Add Manual Diff / Slide Review NO; Basophils Absolute Auto 100 /uL (0-100); Basophils Percent Auto 0.9 % (0-2); Eosinophils Absolute Auto 300 /uL (0-450); Eosinophils Percent Auto 3.4 % (2-4); Hematocrit 40.5 % (41-53); Hemoglobin 14.1 g/dL (13.5-17.5); Lymphocytes Absolute Auto 2200 /uL (1100-4500); Lymphocytes Percent Auto 28.1 % (25-40); Mean Corpuscular HGB Conc 34.9 % (30-36); Mean Corpuscular Hemoglobin 31.6 PG (26-34); Mean Corpuscular Volume 90.7 fL (80-100); Monocytes Absolute Auto 600 /uL (0-900); Monocytes Percent Auto 8.1 % (3-14); Neutrophils Absolute Auto 4700 /uL (1500-7000); Neutrophils Percent Auto 59.5 % (50-75); Platelet Count 248 X10^3/uL (150-400); Red Blood Cell Count 4.46 X10^6/uL (4.5-5.9); White Blood Cell Count 7.9 X10^3/uL (4.5-11.0)
[2022-10-07 11:21] LABS: Hemoglobin A1C% w Est Avg Glu 6.1 % (4.0-6.0)
[2022-10-07 11:43] LABS: Alanine Aminotransferase 42 IU/L (<50); Albumin 4.3 g/dL (3.5-5.0); Albumin Globulin Ratio 1.3 (1.0-2.8); Alkaline Phosphatase 66 U/L (38-126); Aspartate Aminotransferase 30 IU/L (17-59); BUN Creatinine Ratio 20.9 (6-22); Bilirubin Total 0.5 mg/dL (0.2-1.3); Blood Urea Nitrogen 18 mg/dL (9-20); Calcium 9.1 mg/dL (8.4-10.2); Carbon Dioxide 22 mmol/L (22-32); Chloride 106 mmol/L (98-107); Cholesterol 146 mg/dL (140-199); Estimated Glomerular Filt Rate > 60 mL/min (>60); Globulin 3.3 g/dL (1.7-4.1); Glucose 107 mg/dL (70-100); HDL Cholesterol 35 mg/dL (40-60); HEMOLYSIS < 15 (0-50); LDL Cholesterol Calculated 56 mg/dL (<100); Potassium 4.2 mmol/L (3.4-5.1); Sodium 139 mmol/L (137-145); Total Protein 7.6 g/dL (6.3-8.2); Triglycerides 273 mg/dL (35-150)
[2022-10-07 11:50] LABS: Creatinine Urine Random 91.5 mg/dL
[2022-10-07 11:55] LABS: Microalbumi Creatinin Ratio Ur 6.5 ug/mg CR (<30); Microalbumin Urine Random 0.6 mg/dL (0-1.6)
== END ==
PROVIDERS: PCP Family Medicine; Referring Provider Physician Assistant; Visit Provider Physician Assistant
DX: E78.2 Mixed hyperlipidemia (principal); I10 Essential (primary) hypertension; R73.01 Impaired fasting glucose
CPT/HCPCS: 36415; 80053; 80061; 82043; 82570; 83036; 84443; 85025

== ENCOUNTER → 2022-10-20 09:22 | Outpatient (CLI) | payer OTHER, MEDICAID, SELFPAY ==
[2022-10-21 10:09] LABS: Fecal Immunochemical Test Negative (Negative)
== END ==
PROVIDERS: PCP Family Medicine; Referring Provider Physician Assistant; Visit Provider Physician Assistant
DX: Z12.11 Encounter for screening for malignant neoplasm of colon (principal)
CPT/HCPCS: 82274

== ENCOUNTER → 2023-09-14 10:52 | Outpatient (CLI) | payer OTHER, MEDICAID, SELFPAY ==
--- NOTE | 2023-09-14 10:56 | DI.CT.S_ITS ---
PROCEDURE: CT SOFT TISSUE NECK W CON INDICATIONS: VOCAL FOLD / DYSPLASIA TECHNIQUE: After the administration of intravenous contrast, 3.0 mm axial sections acquired from the skull base to the upper chest. Additional 1.5 mm axial sections acquired through the true vocal cords. 1 mm thick coronal reformats were generated. For radiation dose reduction, the following was used: automated exposure control. COMPARISON: None. FINDINGS: Skull Base: The visualized intracranial contents, skull, and orbits are unremarkable. Complete right maxillary sinus opacification with osseous wall thickening reflecting chronic sinusitis. Pharynx and Larynx: The nasopharyngeal airway is patent and midline. Parapharyngeal soft tissues including palatine tonsils and base of the tongue are normal. Retropharyngeal space unremarkable. Both vocal cords are appropriately abducted. False cords are unremarkable cricoid and arytenoid cartilage within normal limits without erosion. Tracheoesophageal grooves unremarkable Normal appearance of the false and true vocal cords. Small thin bilateral laryngeal seals noted contained in the paralaryngeal fat do not extend through the thigh hyoid membrane Muscles and Fascial Planes: Fascial planes are well maintained. No abscess or mass lesion. Lymph Nodes: No evidence of adenopathy. Vasculature: Unremarkable. Submandibular and Parotid Glands: Normal in size and attenuation. Thyroid: Unremarkable. No enlarged or calcified nodules. Bones: No acute fracture. No osteolytic or blastic lesion is evident. Normal bone mineralization. Lung Apices: The visualized lung apices are clear. IMPRESSION: Small bilateral internal laryngoceles are noted greater on the right Multilevel level degenerative disc disease and arthropathy in the cervical spine Approved by: Shaji De M.D. on 09/14/2023 at 18:16
== END ==
PROVIDERS: PCP Family Medicine; Referring Provider Specialist; Visit Provider Specialist
DX: J38.3 Other diseases of vocal cords (principal); Q31.3 Laryngocele; M50.30 Other cervical disc degeneration, unspecified cervical region; M47.812 Spondylosis without myelopathy or radiculopathy, cervical region
CPT/HCPCS: 70491; Q9967

== ENCOUNTER → 2023-11-25 12:01 | Outpatient (CLI) | payer OTHER, MEDICAID, SELFPAY ==
--- NOTE | 2023-11-25 12:03 | DI.CT.S_ITS ---
PROCEDURE: CT LUNG LOW DOSE SCREENING INDICATIONS: nodules and smoking TECHNIQUE: Noncontrast 2.0-2.5 mm thick sections acquired from the pulmonary apices to the posterior costophrenic angles. 7 mm thick axial MIP, and 5 mm coronal and sagittal reformats were then acquired. For radiation dose reduction, the following was used: automated exposure control, adjustment of mA and/or kV according to patient size. COMPARISON: [facility], CT, CT CHEST WITHOUT CONTRAST, 10/23/2022, 12:21. FINDINGS: Image quality: Suboptimal due to motion artifact. Lower Neck: No enlarged lymph nodes. Thyroid: No thyroid nodules which require sonographic follow up, per consensus guidelines. Axillae: No enlarged lymph nodes. Chest Wall: Unremarkable. Bones: Unremarkable. Lungs and Pleura: No pneumothorax or pleural effusions. Moderate centrilobular emphysema and moderate bronchial thickening. Stable solid pulmonary nodules. For example: -5 mm solid nodule, right upper lobe (series 3, image 118). -3 mm solid nodule, anterior right upper lobe (series 3, image 86). Heart: Heart size is normal. No pericardial effusion. 2 vessel coronary artery calcifications. Thoracic Vessels: The aorta and pulmonary arteries demonstrate normal size. Mediastinum and Cyndy: No enlarged lymph nodes. Esophagus: No wall thickening. No hiatal hernia. Upper Abdomen: Visualized upper abdomen solid organs and bowel loops appear normal. IMPRESSION: No suspicious pulmonary nodules. LUNG-RADS 2; continued annual screening, if eligible. Clinically Significant Non-pulmonary Findings: Marked coronary artery calcifications for age. Correlate with risk factors and advise counseling. Dictated by: Kameron Valadez M.D. on 11/25/2023 at 14:35 Approved by: Kameron Valadez M.D. on 11/25/2023 at 14:40
== END ==
LOC: RESP 12:03
PROVIDERS: PCP Family Medicine; Referring Provider Internal Medicine Critical Care Medicine; Visit Provider Internal Medicine Critical Care Medicine
DX: R91.8 Other nonspecific abnormal finding of lung field (principal); F17.200 Nicotine dependence, unspecified, uncomplicated; J44.9 Chronic obstructive pulmonary disease, unspecified
CPT/HCPCS: 71271

== ENCOUNTER → 2024-08-24 13:30 | Outpatient (CLI) | payer OTHER, SELFPAY | PROVIDERS: PCP Family Medicine; Referring Provider Internal Medicine Critical Care Medicine; Visit Provider Internal Medicine Critical Care Medicine | DX: J44.9 Chronic obstructive pulmonary disease, unspecified (principal); F17.200 Nicotine dependence, unspecified, uncomplicated; J98.8 Other specified respiratory disorders; R94.2 Abnormal results of pulmonary function studies | CPT/HCPCS: 94060; 94726; 94729 ==